=== PATIENT | female | born 1960 | race Caucasian/White ===

== ENCOUNTER 2016-06-07 00:41 | Emergency (ER) | payer BC ==
[2016-06-07] MEDS ORDERED: Sodium Chloride 0.9% 1,000 ML PRIMARY IV ONE (00:57)
[2016-06-07] MEDS ORDERED: NORMAL SALINE 10 ML SYRINGE FLUSH IVP PRN (00:57)
[2016-06-07 01:14] LABS: BASOPHILS # (AUTO) 0.06 10*3/UL; BASOPHILS % (AUTO) 0.8 % (0-1); EOSINOPHILS # (AUTO) 0.17 10*3/UL; EOSINOPHILS % (AUTO) 2.2 % (0-8); HEMATOCRIT 43.9 % (37.0-47.0); HEMOGLOBIN 14.8 g/dL (12.0-16.0); LYMPHOCYTES # (AUTO) 2.74 10*3/uL; MEAN CORPUSCULAR HEMOGLOBIN 29.8 PG (27-31); MEAN CORPUSCULAR HGB CONC 33.7 g/dL (33-37); MEAN CORPUSCULAR VOLUME 88.3 FL (81-99); MONOCYTES # (AUTO) 0.54 10*3/UL (0.3-0.8); MONOCYTES % (AUTO) 6.9 % (5-15); NEUTROPHILS # (AUTO) 4.35 10*3/UL; RED BLOOD COUNT 4.97 10^6/uL (4.20-5.40)
[2016-06-07 01:16] VITALS: RESP 20; TEMP 98.6
[2016-06-07 01:19] LABS: PLATELET MORPHOLOGY COMMENT NORMAL MORPHOLOGY (NORM); RBC MORPHOLOGY COMMENT NORMAL MORPHOLOGY (NORM); WBC MORPHOLOGY COMMENT NORMAL MORPHOLOGY (NORM)
[2016-06-07 01:24] LABS: BLOOD UREA NITROGEN 11 mg/dL (7-22); CALCIUM 9.9 mg/dL (8.7-10.7); EST GLOMERULAR FILTRATION > 60 (>60 ml/min/1.73m(2)); SERUM ALBUMIN 4.1 g/dL (3.5-4.8)
--- NOTE | 2016-06-07 02:36 | DI ---
HISTORY: Right flank pain. COMPARISON: None. TECHNIQUE: Axial images were acquired from the lung bases through the ischial tuberosities without c ontrast. MPR. Absent IV contrast precludes adequate evaluation of viscera and vessels, including ly mph nodes. Hardware results in mild limitation within the right hemipelvis soft tissues. FINDINGS: CHEST: Lungs: Bibasilar atelectasis without focal consolidation or pleural effusion. No pneumothorax. Atherosclerosis: Mild atherosclerotic changes in the aorta. Pericardial effusion: No pericardial effusion. ABDOMEN: Liver: No calcification or adjacent inflammatory change. Gallbladder: Distended with bile, no adjacent inflammatory change. Pancreas: No adjacent inflammatory change. Adrenals: Usual non-contrast appearance. Spleen: Usual non-contrast appearance. Kidneys/Ureters: No hydronephrosis. No renal or ureteral calculi. PELVIS: Bowel: Non-obstructive pattern. Moderate volume formed stool. The evaluated appendix is normal in siz e and without adjacent inflammatory change noted. Mesenteric lymph nodes: No enlarged mesenteric lymph nodes. Peritoneum: No large volume free intraperitoneal fluid or air noted. Bladder: Distended with urine. BONES: No acute osseous abnormality. Multilevel degenerative changes and chronic L5 spondylolysis wi th grade II anterolisthesis. Moderate L2 superior endplate compression fracture with mild retropulsio n. Decreased osseous mineralization. 2 Screws are noted in the right proximal femur. IMPRESSION: 1. No obstructive uropathy. 2. Appendix appears normal, non-obstructive bowel gas pattern. 3. Chronic L5 spondylolysis with grade II anterolisthesis. 4. Moderate L2 superior endplate compression fracture with mild retropulsion. NOTIFICATION: The above findings were phoned to Donovan Guzman in the ER Department on 06/07/2016 at 4:3 9am EST.
[2016-06-07 02:44] LABS: BILIRUBIN,URINE NEGATIVE (NEG); COLOR,URINE YELLOW; GLUCOSE, URINE (UA) NEGATIVE (NEG); NITRATE,URINE NEGATIVE (NEG); OCCULT BLOOD,URINE LARGE (NEG); PROTEIN,URINE 30 mg/dl (NEG); UROBILINOGEN,URINE 0.2 EU/dL (0.2)
[2016-06-07 02:47] LABS: CLARITY,URINE SLIGHTLY CLOUDY (CLEAR)
[2016-06-07 02:48] LABS: BACTERIA,URINE RARE; RBC,URINE 25-30 /hpf; SQUAMOUS EPITHELIAL CELL,UR RARE; URINE SAMPLE TYPE CLEAN CATCH URINE; WBC,URINE 0-1
[2016-06-07] MEDS ORDERED: TAMSULOSIN 0.4 MG CAPSULE PO ONE (03:04)
[2016-06-07] MEDS ORDERED: CIPROFLOXACIN 500 MG TABLET PO ONE (03:04)
[2016-06-07] MEDS ORDERED: HYDROcodone-APAP 10 MG-325 MG TABLET PO SCH (03:15)
--- NOTE | 2016-06-07 03:21 | PDOC ---
Female Problem HPI - General Chief Complaint: Genitourinary Complaint Stated Complaint: right flank pain; hematuria Date Seen by Provider: 06/07/16 Time Seen by Provider: 00:45 Source: POSITIVE: Patient, Spouse Exam Limitations: POSITIVE: No limitations Nurse's Notes Reviewed & Considered: Yes - History of Present Illness Initial Comments: The patient is a 55-year-old female. She states that approximately one hour [employer] she developed some right flank pain and shortly thereafter she noticed some hematuria. No fevers or chills. Patient has a history of osteogenesis imperfecta. No previous abdominal surgery. No similar previous episodes. No nausea or vomiting. Body Location Affected: REPORTS: Back (Right flank) Timing: REPORTS: Abrupt Duration: 1 hour Severity: Moderate Quality: REPORTS: "Pain" Context: DENIES: Frequent Bathing, Poor Hygiene, Frequent [place], Known STD Exposure, Unknown STD Exposure, Possible STD Exposure, Multiple Partners, Known , Recent Vaginal Delivery, Recent Delivery, Recent Miscarriage, Recent Trauma, Recent Surgery, Other Location of Pain: REPORTS: Right, Flank Pain Vaginal Bleeding: DENIES: Abnormal Bleeding, More Severe Than Periods, Heavier Than Periods, Similar to Periods, Lapel Baster Than Periods, Spotting, Passing Clots , Passing Tissue, Other : REPORTS: Post-Menopausal Urinary Symptoms: REPORTS: Blood in Urine, Discomfort w/ Urination Discharge: DENIES: Vaginal Discharge, Vag Fluid Leak- , Breast Discharge, Other Similar Symptoms Previously: No Recent Care Received: REPORTS: Denies Any Prior Injuries Related to Current Complaint?: No - Patient Home Medications Home Medications: Home Medications Diltiazem HCl [Cardizem Cd] 240 mg PO QD #90 cap 03/13/14 Albuterol Sulfate [Proair Hfa] 2 puff INH QID #1 inhaler 08/22/15 Montelukast Sodium [Singulair] 10 mg ORAL QD #90 tab 08/22/15 Simvastatin 10 mg ORAL QD #90 tab 12/10/15 Cyclobenzaprine HCl 10 mg ORAL BID #30 tab 04/01/16 Levonorgestrel-Ethin Estradiol [Lutera-28 Tablet] 1 tab PO DAILY #3 packet 04/22 Ciprofloxacin HCl 500 mg PO Q12H #19 tab 06/07/16 HYDROcodone/APAP 10/325 Tab [Surprise 10/325 Tab] 1 tab PO Q6H PRN #20 tab Meloxicam 7.5 mg PO DAILY 06/07/16 Tamsulosin HCl [Flomax] 0.4 mg PO DAILY #10 cap 06/07/16 - Patient Allergies Allergies/Adverse Reactions: Allergies Allergy/AdvReac Type Severity Reaction Status Date / Time codeine Allergy NOT Verified 06/07/16 00:51 APPLICABLE Past Medical History - heen HEENT History: Denies History Cardiovascular History: Arrhythmia Respiratory History: Asthma Gastrointestinal History: Denies History Genitourinary History: Denies History Endocrine History: Denies History Musculoskeletal History: Other (please comment) Additional Musculoskeletal History: osteogenesis imperfecta Neurological History: Denies History Blood Disorders: Denies History Psychiatric History: Denies History Female Reproductive History: Denies History Cancer History: Denies History In Past Year Been Physically Harmed or Verbally Threatened: No History of MDRO: No Tobacco Use: Never Smoker Alcohol Use: None Substance Use Type: None Previous Surgical History: Yes Type / Date of Surgery: "several ortho repairs/surgeries" Significant Family History: No pertinent family hx Past Medical History Reviewed: Reviewed - No Changes ROS - Limitations ROS Limitations: No Limitations Constitution: REPORTS: Denies Symptoms Cardiovascular: REPORTS: Denies Cardiac Symptoms Respiratory: REPORTS: Denies Resp Symptoms Neurological: REPORTS: Denies Neuro Symptoms Gastrointestinal: REPORTS: Denies GI Symptoms Endocrine: REPORTS: Denies Symptoms Musculoskeletal: REPORTS: Denies MS Symptoms Genitourinary: REPORTS: Dysuria, Flank Pain (Right) Eyes: REPORTS: Denies Symptoms ENT: REPORTS: Denies Symptoms Skin: REPORTS: Denies Skin Symptoms Lympathic: REPORTS: Denies Lympathic Symptoms Immunologic: POSITIVE: Denies Symptoms Psychiatric: POSITIVE: Denies Psych Symptoms Female Genitourinary Exam - General Appearance General Appearance: POSITIVE: Alert, Cooperative, No Acute Distress, No Evidence of Trauma - HEENT HEENT: POSITIVE: Head Inspection Nml, Eyes Inspection Nml, Ears Inspection Nml, Nose Inspection Nml, Oral/Dental Inspect. Nml, Pharynx Inspect. Nml, PERRL, EOMI - Neck Neck: POSITIVE: Normal Inspection, No Apparent Injury - Respiratory Respiratory: POSITIVE: No Respiratory Distress, Breath Sounds Normal, Chest Non- Tender - Cardiovascular Cardiovascular: POSITIVE: Regular Rate and Rhythm, Heart Sounds Normal, Equal Pulses, Strong Pulses Peripheral Pulses: Radial (R): 2+, Radial (L): 2+ - Abdomen Abdomen: POSITIVE: Soft, Normal Bowel Sounds, Non-Tender, No Distention, No Organomegaly - Back Back: POSITIVE: CVA Tenderness (R) (Mild discomfort on percussion) - Skin Skin: POSITIVE: Intact, Normal For Race, Warm, Dry, No Rash - Extremities Extremity: Non-Tender: (All Extremities), Normal ROM: (All Extremities), Normal Inspection: (All Extremities) - Neurological / Psychological Neurological: POSITIVE: Oriented X3, regional cra Normal As Tested, Motor Normal, Sensation Normal, 5, 6 Female Genitourinary Progress - Results Reviewed by me Xrays/CTs/US Reviewed by me: Yes Discussed with Radiologist: Yes Radiology Findings: CT scan abdomen and pelvis shows no obstructive uropathy or definite stones. There is a superior endplate compression fracture of L2. Lab Results Reviewed: Yes (25-30 red blood cells per high-power field on urinalysis) Lab Results:: Laboratory Results 06/07/16 06/07/16 Range/Units 01:13 02:43 WBC 7.88 (4.8-10.8) 10^3/uL RBC 4.97 (4.20-5.40) 10^6/uL Hgb 14.8 (12.0-16.0) g/dL Hct 43.9 (37.0-47.0) % MCV 88.3 (81-99) FL MCH 29.8 (27-31) PG MCHC 33.7 (33-37) g/dL RDW Std Deviation 42.5 (39-50) fL RDW Coeff of Shailesh 13.2 (11.5-14.5) % Plt Count 259 (140-350) 10*3/uL MPV 9.0 (7.4-12.2) FL Immature Gran % (Auto) 0.3 (0-5) % Neut % (Auto) 55.0 (50-80) % Lymph % (Auto) 34.8 (10-50) % Schleicher % (Auto) 6.9 (5-15) % Eos % (Auto) 2.2 (0-8) % Baso % (Auto) 0.8 (0-1) % Immature Gran # (Auto) 0.02 10*3/UL Neut # (Auto) 4.35 10*3/UL Lymph # (Auto) 2.74 10*3/uL Schleicher # (Auto) 0.54 (0.3-0.8) 10*3/UL Eos # (Auto) 0.17 10*3/UL Baso # (Auto) 0.06 10*3/UL WBC Morphology Comment Normal morphology (NORM) Plt Morphology Comment Normal morphology (NORM) RBC Morph Comment Normal morphology (NORM) Sodium 140 (135-145) meq/L Potassium 3.6 L (3.8-5.2) meq/L Chloride 107 (98-112) meq/L Carbon Dioxide 22 L (23-33) meq/L Anion Gap 11 (5-20) BUN 11 (7-22) mg/dL Creatinine 0.5 (0.50-1.20) mg/dL Estimated GFR > 60 (>60 ml/min/1.73m(2)) BUN/Creatinine Ratio 22.00 H (6-20) Glucose 91 (78-110) mg/dL Calculated Osmolality 288.0 (267-292) mOsm/kg Calcium 9.9 (8.7-10.7) mg/dL Total Bilirubin 0.5 (0.3-1.2) mg/dL AST 25 (8-39) IU/L ALT 29 (9-52) IU/L Alkaline Phosphatase 91 (38-126) IU/L Total Protein 7.1 (6.1-8.0) g/dL Albumin 4.1 (3.5-4.8) g/dL Globulin 2.9 (2.50-4.10) g/dL Albumin/Globulin Ratio 1.40 (1.3-2.0) mg/g Ur Collection Type Clean catch urine Urine Color Yellow Urine Clarity Slightly cloudy (CLEAR) Urine pH 5.0 (5.0-8.5) Ur Specific Anna 1.005 (1.005-1.030) Urine Protein 30 (NEG) mg/dl Urine Glucose (UA) Negative (NEG) mg/dL Urine Ketones 15 (NEG) Urine Occult Blood Large H (NEG) Urine Nitrate Negative (NEG) Urine Bilirubin Negative (NEG) Urine Urobilinogen 0.2 (0.2) EU/dL Ur Leukocyte Esterase Trace (NEG) Urine RBC 25-30 (NONE) /hpf Urine WBC 0-1 (NONE) Ur Squamous Epith Cells Rare (NONE) Ur Renal Epithelial Cell None (NONE) Urine Crystals None Urine Bacteria Rare (NONE) Urine Casts None (NONE) Urine Mucus Few (NONE) Urine Trichomonas None (NONE) Urine Yeast None (NONE) Ur Culture Indicated? Culture not set - Patient's Progress Pain Medication Addressed: POSITIVE: Yes (Hydrocodone/APAP) School/Work Release Addressed: POSITIVE: Not Applicable Re-Examine Time: 02:55 Re-Examine Comment: Patient advised to that no definite stones and the urinary tract for seen on CT scan; however, her symptoms are compatible with ureterolithiasis. Is also possible that she could have an infection. Patient started on Cipro, Flomax and hydrocodone/APAP to cover both possibilities. Patient to follow-up with her primary care provider in 10 days. Status: POSITIVE: Unchanged, Re-Examined - Consult Counseled: POSITIVE: Patient, Family, RE: Lab Results, RE: Radiology Results, RE : DX, RE: Need for F/U Patient Care Time - Estimated PCT Patient Care Time (In Minutes): 40 Vital Signs - Recent Vital Signs Vital Signs: Vital Signs (Last 8 hours) Temp Pulse Resp BP Pulse Ox 06/07/16 00:43 98.6 F 100 20 125/72 97 - VS Reviewed Vital Signs Reviewed: Yes Discharge Clinical Impression: Hematuria, Renal colic Discharge Disposition: Discharged to Home Condition: Stable Prescriptions / Orders: Ciprofloxacin HCl 500 mg PO Q12H #19 tab Tamsulosin HCl [Flomax] 0.4 mg PO DAILY #10 cap HYDROcodone/APAP 10/325 Tab [[place] 10/325 Tab] 1 tab PO Q6H PRN #20 tab PRN Reason: Pain Patient Instructions Given at Discharge: Kidney Stones (ED), Urinary Tract Infection in Women (ED) Additional Instructions: The CT scan does not show any definite kidney stones. However, the location of your pain and the blood in your urine are both's highly suggestive of this problem. You could also have a urinary tract infection with some bleeding, or, less likely, tumors of the kidney or bladder. Please take Cipro, one every 12 hours for 10 days. Also, ongoing to give you Flomax, one daily, which might help any stone, which is not detected by the CT scan, to pass. Hydrocodone/APAP , one every 6 hours as necessary for pain. Strain your urine and check for the passage of stones. Follow-up with your primary care provider if you have not passed a stone in 10 days. If he still have blood in your urine and if the urine culture is negative, further urologic evaluation would be indicated at that time. Return anytime if you develop fevers, chills, persistent vomiting or if the pain becomes more severe. Follow Up With: MARCK WOODY FNP [Primary Care Provider] - (Instructions as above. Follow- up with your primary care provider as above. Return here anytime if condition worsens in any way.)
== END 2016-06-07 03:25 | disposition home or self-care (01) ==
LOC: ER 00:41
DX: N23 Unspecified renal colic (principal); R31.9 Hematuria, unspecified; M54.89 Other dorsalgia; M47.896 Other spondylosis, lumbar region; M84.48XD Pathological fracture, other site, subsequent encounter for fracture with routine healing
CPT/HCPCS: 74176; 80053; 81001; 81003; 85025; 96360; 96361; 99283; J7030

== ENCOUNTER → 2016-09-24 | Outpatient (CLI) | payer BC ==
--- NOTE | 2016-09-28 09:20 | DI ---
XR FOOT COMPLETE MIN 3VW,09/24/2016 12:44 PM: Clinical History: Left foot pain Previous Exam: None at this facility. Findings: 3 views of the left foot are obtained, and demonstrate diffuse osteopenia. There is surrounding soft tissue swelling noted. Mild degenerative changes are seen. There is some mild soft tissue swelling. Impression: Diffuse osteopenia without visible fractures.
== END ==
LOC: RAD 12:36
PROVIDERS: ATTEND Physician Assistant Surgical
DX: M79.672 Pain in left foot (principal); M19.072 Primary osteoarthritis, left ankle and foot; M79.89 Other specified soft tissue disorders
CPT/HCPCS: 73630

== ENCOUNTER → 2016-10-14 | Outpatient (CLI) | payer BC ==
[2016-10-14 12:09] LABS: BILIRUBIN,URINE NEGATIVE (NEG); CLARITY,URINE CLEAR (CLEAR); COLOR,URINE YELLOW; GLUCOSE, URINE (UA) NEGATIVE (NEG); NITRATE,URINE NEGATIVE (NEG); OCCULT BLOOD,URINE MODERATE (NEG); PROTEIN,URINE NEGATIVE (NEG); UROBILINOGEN,URINE 0.2 EU/dL (0.2)
[2016-10-14 12:18] LABS: BACTERIA,URINE FEW; RBC,URINE 0-3 /hpf; URINE SAMPLE TYPE CLEAN CATCH URINE
== END ==
LOC: LAB 11:51
PROVIDERS: ATTEND Nurse Practitioner Family
DX: R30.0 Dysuria (principal)
CPT/HCPCS: 81001; 87077; 87088; 87185; 87186

== ENCOUNTER 2017-06-10 19:50 | Inpatient (IN) ==
[2017-06-10] MEDS ORDERED: MORPHINE SULFATE 4 MG/1 ML IM ONE (20:11)
--- NOTE | 2017-06-10 21:14 | DI ---
EXAM: XR Left Shoulder Complete, 2 or More Views CLINICAL HISTORY: ITS.REASON left shoulder pain, osteogenesis imperfecta Physician Notes: include scapular view. Tech Comments: TECHNIQUE: Two or more views of the left shoulder. COMPARISON: None. FINDINGS: Bones/joints: Unremarkable. No acute fracture. No dislocation. Soft tissues: Unremarkable. IMPRESSION: Normal left shoulder x-rays.
[2017-06-10] MEDS ORDERED: NORMAL SALINE 10 ML SYRINGE FLUSH IVP PRN (21:23)
[2017-06-10] MEDS ORDERED: Sodium Chloride 0.9% 1,000 ML PRIMARY IV ONE (21:23)
[2017-06-10 21:35] LABS: BILIRUBIN,URINE NEGATIVE (NEG); CLARITY,URINE CLOUDY (CLEAR); COLOR,URINE YELLOW (Y); GLUCOSE, URINE (UA) NEGATIVE (NEG); OCCULT BLOOD,URINE Trace-lysed (NEG); PH,URINE 6.5 (5.0-8.5); PROTEIN,URINE 30 mg/dl (NEG)
[2017-06-10 21:37] LABS: BACTERIA,URINE MANY; RBC,URINE 0-2 /hpf; URINE SAMPLE TYPE CATH SPECIMEN; WBC,URINE >100
[2017-06-10 22:16] LABS: BASOPHILS # (AUTO) 0.03 10*3/UL; BASOPHILS % (AUTO) 0.3 % (0-1); EOSINOPHILS % (AUTO) 0.9 % (0-8); Hematocrit [HCT] 32.4 % (37.0-47.0); Hemoglobin [HGB] 10.4 g/dL (12.0-16.0); LYMPHOCYTES # (AUTO) 1.77 10*3/uL; MEAN CORPUSCULAR HEMOGLOBIN 29.2 PG (27-31); MEAN CORPUSCULAR HGB CONC 32.1 g/dL (33-37); MEAN PLATELET VOLUME 7.9 FL (7.4-12.2); MONOCYTES # (AUTO) 1.13 10*3/UL (0.3-0.8); MONOCYTES % (AUTO) 9.8 % (5-15); NEUTROPHILS # (AUTO) 7.98 10*3/UL; NEUTROPHILS % (AUTO) 69.2 % (50-80); RED BLOOD COUNT 3.56 10^6/uL (4.20-5.40)
[2017-06-10 22:17] LABS: PLATELET MORPHOLOGY COMMENT NORMAL MORPHOLOGY (NORM); RBC MORPHOLOGY COMMENT NORMAL MORPHOLOGY (NORM); WBC MORPHOLOGY COMMENT NORMAL MORPHOLOGY (NORM)
--- NOTE | 2017-06-10 22:22 | DI ---
EXAM: CT Left Upper Extremity Without Intravenous Contrast, Shoulder CLINICAL HISTORY: ITS.REASON left shoulder pain, osteogenesis imperfecta Physician Notes: Tech Comments: TECHNIQUE: Axial computed tomography images of the left shoulder without intravenous contrast. COMPARISON: Shoulder x-ray performed earlier today. FINDINGS: Bones/joints: There are multiple age indeterminate mildly displaced fractures of the scapular spine. Soft tissues: Unremarkable. IMPRESSION: There are multiple age indeterminate mildly displaced fractures of the scapular spine.
[2017-06-10 22:27] LABS: BLOOD UREA NITROGEN 7 mg/dL (7-22); SERUM ALBUMIN 3.8 g/dL (3.5-4.8)
[2017-06-10] MEDS ORDERED: DOCUSATE 100 MG CAPSULE PO PRN (22:46)
[2017-06-10] MEDS ORDERED: HYDROcodone-APAP 5 MG -325 MG TABLET PO PRN (22:46)
[2017-06-10] MEDS ORDERED: CALCIUM CARBONATE 500 MG (TUMS) CHEWABLE TABLET PO PRN (22:46)
[2017-06-10] MEDS ORDERED: ONDANSETRON 4 MG/2 ML VIAL IVP PRN (22:46)
[2017-06-10] MEDS ORDERED: LIDOCAINE W/ SODIUM BICARB 0.5 ML SYR SUBD PRN (22:46)
[2017-06-10] MEDS ORDERED: oxyCODONE IR Tab 5 MG TAB PO PRN (22:50)
[2017-06-10] MEDS ORDERED: SODIUM CHLORIDE 0.9% IV ONE (22:52)
[2017-06-10] MEDS ORDERED: CEFOTAXIME IV ONE (22:52)
--- NOTE | 2017-06-10 22:54 | PDOC ---
HPI - History of Present Illness History of Present Illness: This very nice 56-year-old female was brought to the ER complaining of shoulder pain she has a past medical history of osteogenesis imperfecta had a femur fracture last week and was sent to [facility] in [place] for repair she underwent surgery on Wednesday of last week and was sent home on Wednesday she states that her left shoulder was hurting in the hospital but she didn't think much of it and today while trying to put on a sweater felt a pop in her left shoulder increase in pain resulting in a fracture she is also not weightbearing on the left leg because of her surgery. Also has a urinary tract infection patient was admitted and started on antibiotics and orthopedic consult was initiated for further recommendations as well as PT and OT Past Medical History Medical History: osteogenesis imperfecta,HTN.hypercholestorelemia Surgical History: Spiral femur fracture repair Tobacco Use: Never Smoker In the Past 12 Months, Have Used or Abuse Any of the Following Substance: None Medication / Allergies Home Medications: Home Medications 3 Medication Instructions Recorded Confirmed Type Albuterol Sulfate [Proair Hfa] 2 puff INH QID #1 inhaler 08/22/15 06/10/17 History Cyclobenzaprine HCl 10 mg ORAL BID #30 tab 04/01/16 06/10/17 Rx Levonorgestrel-Ethin Estradiol 1 tab PO DAILY #3 packet 04/22/16 06/10/17 Rx [Lutera-28 Tablet] Montelukast Sodium [Singulair] 10 mg ORAL QD #90 tab 06/30/16 06/10/17 Rx diltiazem CD 240 mg 180 mg PO QD #90 cap 12/30/16 06/10/17 History capsule,extended release 24 hr potassium chloride ER 10 mEq 10 meq PO QDAY #90 cap 01/07/17 06/10/17 Rx capsule,extended release simvastatin 10 mg tablet 10 mg PO QD #90 tab 03/03/17 06/10/17 Rx lisinopril 10 mg tablet 10 mg PO QDAY 04/01/17 06/10/17 History Oxycodone HCl 5 mg PO PRN PRN 06/10/17 06/10/17 History Allergies/Adverse Reactions: Allergies 3 Allergy/AdvReac Type Severity Reaction Status Date / Time codeine Allergy NOT Verified 06/10/17 20:08 APPLICABLE Review of Systems - Review of Systems All Systems: Reviewed & No Additional Complaints Except as Stated - Respiratory Respiratory: DENIES: Negative System Review, Cough, Sputum, Dyspnea At Rest, Dyspnea with Exertion, Pleuritic Pain, Hemoptysis, Wheezing, Other, See HPI - Cardiovascular Cardiovascular: DENIES: Negative System Review, Chest Pain, Edema, Syncope, Palpitations, Orthopnea, Paroxysmal Nocturnal Dyspnea, Other, See HPI - Gastrointestinal Gastrointestinal / Abdominal: DENIES: Negative System Review, Nausea, Vomiting, Diarrhea, Constipation, Abdominal Pain, Bloody Stool, Poor Appetite, Heartburn, Regurgitation, Bloating, Lactose Intolerance, Melena, Bright Red Blood per Rectum, Other, See HPI Exam - Vitals Vital Signs: Vital Signs Temperature 98.5 F Temperature Source Temporal Artery Scan Pulse Rate [Pulse Oximeter] 116 Respiratory Rate 16 Blood Pressure [Right Arm] 118/70 Pulse Ox 96 Oxygen Delivery Method Room Air Height 4 ft 7 in Weight 100 lb - General General Appearance: No Acute Distress, Cooperative - Head Head Exam: Normal Inspection, Normocephalic, Atraumatic - Respiratory Respiratory Exam: POSITIVE: Clear to Auscultation - Bilaterally, Breathing Non Labored, Normal To Percussion, Normal to Percussion and Palpation - Extremities Extremities Exam: POSITIVE: Normal Inspection, Full ROM, Normal Capillary Refill , No Clubbing Present, No Edema Present, No Cyanosis Present, Negative Elizabeth's sign, Dosalis Pedis Pulses - Stong & Regular Additional Extremities Exam Details: Left arm in a sling - Neurological Neurological Exam: POSITIVE: Alert, Oriented x 3, Reflexes Normal, Normal Gait, CN II-XII Intact, No Facial Droop, Speech Intact / Clear, Moves All Extremities Equally, No Fasciculations, No Clonus - Psychiatric Psychiatric Exam: POSITIVE: Normal Affect, Normal Mood Results - Labs CBC and BMP: 06/11/17 04:23 18 04:23 Assessment and Plan - Patient Problems (1) Anemia Current Visit: Yes Status: Acute Code(s): D64.9 - Anemia, unspecified (2) Osteogenesis imperfecta Current Visit: Yes Status: Acute Code(s): Q78.0 - Osteogenesis imperfecta (3) Scapular fracture Current Visit: Yes Status: Acute Code(s): S42.109A - Fracture of unspecified part of scapula, unspecified shoulder, initial encounter for closed fracture (4) UTI (urinary tract infection) Current Visit: Yes Status: Acute Code(s): N39.0 - Urinary tract infection, site not specified (5) Fracture of femur Current Visit: No Status: Acute Code(s): S72.90XA - Unspecified fracture of unspecified femur, initial encounter for closed fracture - Assessment / Plan Additional Assessment/Plan Details: #[address] Nolasco was consulted in the ER he recommended sling will await further recommendations PTOT consult did also has a left femur fracture and is not weightbearing which she had operated in [place] most likely all this and result of osteogenesis imperfecta #2 UTI continue [place] IV #3 anemia etiology unknown we'll check some iron panels
[2017-06-10] MEDS ORDERED: MORPHINE SULFATE 2 MG/1 ML IVP ONE (23:05)
[2017-06-10] MEDS ORDERED: ONDANSETRON 4 MG/2 ML VIAL IVP ONE (23:05)
--- NOTE | 2017-06-10 23:26 | PDOC ---
General Adult HPI - General Chief Complaint: Upper Extremity Problem/Injury Stated Complaint: LEFT SHOULDER PAIN/INJURY Date Seen by Provider: 06/10/17 Time Seen by Provider: 19:55 Source: POSITIVE: Patient, EMS Exam Limitations: POSITIVE: No limitations Nurse's Notes Reviewed & Considered: Yes EMS Report Reviewed & Considered: Verbal - History of Present Illness Initial Comment: The patient is a 56-year-old female who is brought to the emergency department with complaints of left shoulder pain. She has a history of osteogenesis imperfecta and had fallen from a stool while playing with a grandchild last week. She was diagnosed with a femur fracture on the left side and had been sent to [facility] in [place] for repair. She states that she underwent surgery on Wednesday of last week and was discharged from the hospital on Wednesday. She states that even while in the hospital she was having some pain in her posterior left shoulder especially with transfers etc. She states that earlier this evening she was attempting to put on a sweater when she felt a pop in her left shoulder. She now has significant increase in pain to the posterior aspect of her shoulder. She is unable to lift her arm without significant pain. She is currently nonweightbearing on her left leg because of recent surgery and has limited weightbearing on the right leg from previous issues. She has been having somewhat of a difficult time getting by at home even prior to this evening. EMS was called to transport the patient here for evaluation. She is not taking any blood thinner medications. Have you received a tetanus shot in the past 10 years?: Yes - Patient Home Medications Home Medications: Home Medications Albuterol Sulfate [Proair Hfa] 2 puff INH QID #1 inhaler 08/22/15 Cyclobenzaprine HCl 10 mg ORAL BID #30 tab 04/01/16 Levonorgestrel-Ethin Estradiol [Lutera-28 Tablet] 1 tab PO DAILY #3 packet 04/22 Montelukast Sodium [Singulair] 10 mg ORAL QD #90 tab 06/30/16 diltiazem CD 240 mg capsule,extended release 24 hr 180 mg PO QD #90 cap potassium chloride ER 10 mEq capsule,extended release 10 meq PO QDAY #90 cap 04/24 meloxicam 7.5 mg tablet 7.5 mg PO BID #60 tab 02/08/17 simvastatin 10 mg tablet 10 mg PO QD #90 tab 03/03/17 lisinopril 10 mg tablet 10 mg PO QDAY 04/01/17 Oxycodone HCl 5 mg PO PRN PRN 06/10/17 - Patient Allergies Allergies/Adverse Reactions: Allergies 3 Allergy/AdvReac Type Severity Reaction Status Date / Time codeine Allergy NOT Verified 06/10/17 20:08 APPLICABLE Past Medical History - heen HEENT History: Denies History Cardiovascular History: Arrhythmia, Valvular Heart Disease Additional Cardiovasular History: SVT Respiratory History: Asthma Gastrointestinal History: Denies History Genitourinary History: Denies History Endocrine History: Denies History Musculoskeletal History: Other (please comment) Prosthesis or Implant: No Additional Musculoskeletal History: osteogenesis imperfecta Neurological History: Denies History Blood Disorders: Denies History Psychiatric History: Denies History History of Sexually Transmitted Diseases: No Female Reproductive History: Denies History Cancer History: Denies History In Past Year Been Physically Harmed or Verbally Threatened: No History of MDRO: No Tobacco Use: Never Smoker Alcohol Use: None In the Past 12 Months, Have Used or Abuse Any Substance: None Previous Surgical History: Yes Type / Date of Surgery: "several ortho repairs/surgeries". recent surgery to repair spiral femur fracture Significant Family History: No pertinent family hx Past Medical History Reviewed: Reviewed - No Changes ROS - Limitations ROS Limitations: No Limitations Constitution: DENIES: Chills, Fever Cardiovascular: REPORTS: Denies Cardiac Symptoms Respiratory: REPORTS: Denies Resp Symptoms Neurological: REPORTS: Denies Neuro Symptoms Gastrointestinal: REPORTS: Denies GI Symptoms General Adult Exam - General Appearance General Appearance: POSITIVE: Alert, Cooperative, No Acute Distress - HEENT HEENT: POSITIVE: Head Inspection Nml, Eyes Inspection Nml, Ears Inspection Nml, Dry Mucous Membranes - Neck Neck: POSITIVE: Normal Inspection - Respiratory Respiratory: POSITIVE: No Respiratory Distress, Breath Sounds Normal - Cardiovascular Cardiovascular: POSITIVE: Regular Rate & Rhythm, No Murmur - Abdomen Abdomen: Soft: (All Quadrants), Denies Tenderness: (All Quadrants) - Skin Skin: POSITIVE: Normal Color, No Rash - Extremities Additional Extremities Details: Her left lower extremity remains in a bandage/splint. Examination of the left shoulder reveals tenderness to the posterior aspect of the shoulder primarily over the scapula, limited range of motion of the shoulder secondary to pain, no obvious deformity, no tenderness down lower in the humerus or elbow. - Neurological / Psychological Neurological: POSITIVE: Oriented X3, Other (No focal neurologic deficits) General Adult Progress - Results Reviewed by me Xrays/CTs/US Reviewed by me: Yes Discussed with Radiologist: Yes Radiology Findings: Initial x-ray of the left shoulder including scapular view did not show any evidence of fracture per radiologist. Subsequent CT scan of the left shoulder does reveal fractures of the scapular spine of unknown acuity per radiologist. Lab Results Reviewed by Me: Yes CBC and BMP: 06/11/17 04:23 06/11/17 04:23 - Patient's Progress MDM / ED Course: Initially the patient was given 2 mg of morphine for pain control. X-rays of the left shoulder were obtained which did not show any evidence of obvious fracture. The patient continued to have significant pain and was unable to move her left arm without significant pain. She has already nonweightbearing on her left leg and has issues bearing weight on her right leg. She states that in her current state she does not feel that she can take care of herself at home. An IV was established and blood work was obtained. A catheter UA was also obtained which does show evidence of infection. She did receive a second dose of IV morphine for pain control. I did discuss the patient with Dr. Nolasco who is on-call for orthopedic surgery. He recommended treatment of the scapular fracture with an arm sling. I also subsequently discussed the patient with Dr. Aquino from the hospitalist service will admit the patient for treatment of UTI and make arrangements for therapy and/or rehabilitation treatment plan regarding the recent femur fracture and scapular fracture. - Consult Counseled: POSITIVE: Patient, Family, RE: Lab Results, RE: Radiology Results, RE : DX Patient Care Time - Estimated PCT Patient Care Time (In Minutes): 45 Vital Signs - VS Reviewed Vital Signs Reviewed: Yes Discharge Clinical Impression: Scapular fracture, Osteogenesis imperfecta, UTI (urinary tract infection), Femur fracture, left Discharge Disposition: Admit to Observation Condition: Fair
[2017-06-10] MEDS ORDERED: LIDOCAINE HCL 2 % 10 ML JELLY URO-JECT TOPICAL PRN (23:30)
[2017-06-11] MEDS: ACETAMINOPHEN 325 MG TABLET PO PRN ×2 (00:46→14:04)
[2017-06-11] MEDS ORDERED: Sodium Chloride 0.9% 100 ML IV ONE ×2 (01:12→01:16)
[2017-06-11] MEDS: HEPARIN 5000 UNIT/1 ML SUBCUT SCH ×4 (01:19→23:54)
[2017-06-11] MEDS: Simvastatin Tab 10 MG TAB PO SCH ×2 (01:41→20:37)
[2017-06-11] MEDS: DILTIAZEM CD 180 MG CAP PO SCH ×3 (01:41→20:38)
[2017-06-11] MEDS ORDERED: CYCLOBENZAPRINE 10 MG TABLET PO ONE (02:38)
[2017-06-11 05:17] LABS: BASOPHILS # (AUTO) 0.03 10*3/UL; BASOPHILS % (AUTO) 0.3 % (0-1); EOSINOPHILS # (AUTO) 0.08 10*3/UL; EOSINOPHILS % (AUTO) 0.9 % (0-8); LYMPHOCYTES # (AUTO) 2.15 10*3/uL; MEAN CORPUSCULAR HEMOGLOBIN 28.4 PG (27-31); MEAN CORPUSCULAR HGB CONC 30.8 g/dL (33-37); MEAN CORPUSCULAR VOLUME 92.2 FL (81-99); MEAN PLATELET VOLUME 8.2 FL (7.4-12.2); MONOCYTES % (AUTO) 11.1 % (5-15); RED BLOOD COUNT 2.82 10^6/uL (4.20-5.40)
[2017-06-11 05:20] LABS: PLATELET MORPHOLOGY COMMENT NORMAL MORPHOLOGY (NORM); RBC MORPHOLOGY COMMENT NORMAL MORPHOLOGY (NORM); WBC MORPHOLOGY COMMENT NORMAL MORPHOLOGY (NORM)
[2017-06-11 05:24] LABS: BLOOD UREA NITROGEN 6 mg/dL (7-22); SERUM ALBUMIN 2.7 g/dL (3.5-4.8)
[2017-06-11] MEDS ORDERED: ALBUTEROL SULFATE 8.5 GM HFA INHALER INH SCH (07:00)
[2017-06-11] MEDS ORDERED: ALBUTEROL SULFATE 8.5 GM HFA INHALER INH PRN (07:16)
[2017-06-11] MEDS: LISINOPRIL 10 MG TABLET PO SCH (08:02)
[2017-06-11] MEDS: Montelukast Tab 10 MG TAB PO SCH (08:02)
[2017-06-11] MEDS: CYCLOBENZAPRINE 10 MG TABLET PO SCH ×2 (08:02→20:38)
[2017-06-11] MEDS: Potassium Chloride Tab 10 MEQ TAB PO SCH (08:03)
[2017-06-11] MEDS: NORMAL SALINE 10 ML SYRINGE FLUSH IVP PRN (08:04)
[2017-06-11] MEDS ORDERED: DILTIAZEM CD 180 MG CAP PO SCH (09:00)
[2017-06-11] MEDS ORDERED: Meloxicam Tab 7.5 MG TABLET PO SCH (09:00)
[2017-06-11] MEDS: oxyCODONE IR Tab 5 MG TAB PO PRN ×3 (09:22→21:16)
[2017-06-11] MEDS: LEVONORGESTREL ETHIN ESTRADIOL PO SCH (10:56)
--- NOTE | 2017-06-11 14:38 | PTI REPORT ---
Thank you for the referral of Pita Starr. She was seen on 06/11/17 for an inpatient evaluation secondary to a left femur fracture with ORIF. SUBJECTIVE: The patient is a 56-year-old female who has a history of osteogenesis imperfecta. Most recently she suffered a fall on 06/01/2017 when she fell from a stool. She was transferred to [facility] for open reduction internal fixation of a distal femur fracture on 06/02/2017. She was discharged home from [facility] on 06/06/2017. She did come to the hospital yesterday after feeling a pop in her left shoulder and severe pain. She does have a fracture of the spinous scapula on the left. She is non weight-bearing on the left with a knee immobilizer in place and is also non weight-bearing in the left upper extremity. Previous functional level: The patient lived at home with her . Most recently she was able to ambulate with a standing cane with a long leg brace on the right lower extremity due to previous fractures and ORIF of the tibia and the ankle. She does have a wheelchair at home with elevating swing-away leg rests. PAST MEDICAL HISTORY: Past medical history can be found in the patient's medical record. OBJECTIVE FINDINGS: General observations: The patient is awake and oriented x3. Pain: The patient reports pain in the left femur at a level of 4/10 on the verbal analog scale (0=no pain, 10=worst pain). She has minimal discomfort in the left scapula if not moving. Transfers: The patient required max assist x2 to perform a pivot transfer using pad and sheet to perform the rotations with no sharing her ischial tuberosities. She was able to sit on the bedside with left lower extremity supported in a long leg brace x5 minutes. ASSESSMENT: Problem List: Decreased ability to perform functional transfers Weakness Pain Short-Term Goals: To be met by discharge from inpatient: Patient will be able to perform pivot transfer with mod assist of two with a long legged brace on the right lower extremity, non weight-bearing on the left lower extremity as well as the left upper extremity. Patient will be able to tolerate sitting position x30 minutes, supported in the chair. Long-Term Goals: To be met following discharge from inpatient: Patient will return home to care of the family. TREATMENT PLAN: Patient will be seen B.I.D during the week and one time per day over the weekend as an inpatient for sitting balance activity and transfer training. Plan of care was reviewed with the patient and agreed upon. INITIAL TREATMENT: Treatment today consisted of the initial evaluation. A sling was applied to the left upper extremity per physician's orders. Knee immobilizer was readjusted for proper fit. The patient and her were instructed in the proper fit of the brace. Note done by: Felicia Kennedy, PT DEBRA
--- NOTE | 2017-06-11 16:24 | CONSULT ---
Consult Note - Consult Consult Date: 06/11/17 Reason for Consult: Orthopedic Consult Requesting Physician: Alhaji Aquino Primary Care Provider: DAVID Castillo - History of Present Illness History of Present Illness: Patient is a 56-year-old female with osteogenesis imperfecta who sustained a fall approximately 10 days ago where she sustained a significant a fracture through her left distal femur she also around that time up to go which is in the hospital transfer and moving was complaining of some left posterior shoulder pain and discomfort but this was never investigated when she was in [place] at the hospital down there. She notes she was at home putting on a sweater and had increasing pain discomfort with a pop up. She came to the emergency room where x-rays were negative a CT scan was ordered and it was found that she had a scapula fracture. Minimally displaced indeterminant age. Patient was admitted because of pain control and limited ability to mobilize in the house. Patient then home for the last 4 days out from her discharge from [place]. Past Medical History Medical History: osteogenesis imperfecta,HTN.hypercholestorelemia Surgical History: Spiral femur fracture repair Tobacco Use: Never Smoker In the Past 12 Months, Have Used or Abuse Any of the Following Substance: None Medication / Allergies Home Medications: Home Medications 3 Medication Instructions Recorded Confirmed Type Albuterol Sulfate [Proair Hfa] 2 puff INH QID #1 inhaler 08/22/15 06/10/17 History Cyclobenzaprine HCl 10 mg ORAL BID #30 tab 04/01/16 06/10/17 Rx Levonorgestrel-Ethin Estradiol 1 tab PO DAILY #3 packet 04/22/16 06/10/17 Rx [Lutera-28 Tablet] Montelukast Sodium [Singulair] 10 mg ORAL QD #90 tab 06/30/16 06/10/17 Rx diltiazem CD 240 mg 180 mg PO QD #90 cap 12/30/16 06/10/17 History capsule,extended release 24 hr potassium chloride ER 10 mEq 10 meq PO QDAY #90 cap 01/07/17 06/10/17 Rx capsule,extended release simvastatin 10 mg tablet 10 mg PO QD #90 tab 03/03/17 06/10/17 Rx lisinopril 10 mg tablet 10 mg PO QDAY 04/01/17 06/10/17 History Oxycodone HCl 5 mg PO PRN PRN 06/10/17 06/10/17 History Allergies/Adverse Reactions: Allergies 3 Allergy/AdvReac Type Severity Reaction Status Date / Time codeine Allergy NOT Verified 06/10/17 20:08 APPLICABLE Exam - - Exam: Examination shows that the patient is a sling she has limited motion of the arm secondary to pain complains of pain in the posterior scapular region. Good elbow wrist and digital motion shoulder motion produces posterior scapular pain unwilling to really move. There is no significant swelling edema and ecchymosis or other changes. Patient's left leg is in a knee immobilizer good active motion of the foot and ankle. Dressing not taken down at this point in time. Radiographs of the left shoulder show a nondisplaced or minimally displaced scapular body fracture CT scan show no evidence of proximal humerus fracture but a minimally displaced scaphoid body fracture. - Vitals Vital Signs: Vital Signs Temperature 98.7 F Temperature Source Temporal Artery Scan Pulse Rate [Pulse Oximeter] 110 Respiratory Rate 18 Blood Pressure [Right Arm] 110/34 Pulse Ox 93 Oxygen Delivery Method Room Air Height 4 ft 7 in Weight 45.359 kg Results - Labs CBC and BMP: 06/11/17 04:23 06/11/17 04:23 Assessment and Plan - Assessment / Plan Additional Assessment/Plan Details: Impression: Recent left femur fracture with apparent plating with nonweightbearing status. Left scapular body fracture minimally displaced Plan: Patient to mobilize with physical therapy she can utilize the left arm as tolerated for activities and transfers. As a discussed with the patient I think based on the nature and location of this is likely present when she had her initial fall but with the recent pop this probably displaced slightly though it still remains minimally displaced I certainly think by location she can utilize as she feels comfortable obviously limited use a sling as needed and will have her slowly progress as she tolerates. - Time/Visit Time Spent With Patient: 15-25 Minutes
[2017-06-11] MEDS ORDERED: Sodium Chloride 0.9% 1,000 ML PRIMARY IV ONE (16:43)
--- NOTE | 2017-06-11 17:37 | PT.PROG ---
Progress Note Progress Note: S. Patient stated that her back is hurting and would like to move. O. Patient was transferred to the edge of bed where she performed long arc quads , ankle pumps, marches, resisted knee flexion all x 10 on the right leg. Patient was transferred back to bed where she was left with alarm and call light. A. Patient tolerated exercise fair, she was able to tolerate 10 minutes of sitting up. She required max assist x2 to move her to the edge of bed. She would continue to benefit from skilled therapy at this time to increase strength on her right side. Patient could benefit from Swing bed at this time. P. Continue POC.
[2017-06-12] MEDS: ACETAMINOPHEN 325 MG TABLET PO PRN ×3 (00:01→19:46)
[2017-06-12] MEDS: oxyCODONE IR Tab 5 MG TAB PO PRN ×2 (04:45→12:29)
[2017-06-12] MEDS: HEPARIN 5000 UNIT/1 ML SUBCUT SCH ×3 (06:47→23:43)
[2017-06-12] MEDS: LISINOPRIL 10 MG TABLET PO SCH ×2 (08:27→09:13)
[2017-06-12] MEDS: CYCLOBENZAPRINE 10 MG TABLET PO SCH ×2 (08:27→20:36)
[2017-06-12] MEDS: Potassium Chloride Tab 10 MEQ TAB PO SCH (08:27)
[2017-06-12] MEDS: Montelukast Tab 10 MG TAB PO SCH (08:28)
[2017-06-12 08:47] LABS: BASOPHILS # (AUTO) 0.03 10*3/UL; BASOPHILS % (AUTO) 0.3 % (0-1); EOSINOPHILS # (AUTO) 0.17 10*3/UL; EOSINOPHILS % (AUTO) 1.7 % (0-8); Hematocrit [HCT] 26.9 % (37.0-47.0); Hemoglobin [HGB] 8.5 g/dL (12.0-16.0); LYMPHOCYTES # (AUTO) 1.94 10*3/uL; MEAN CORPUSCULAR HEMOGLOBIN 29.4 PG (27-31); MEAN CORPUSCULAR HGB CONC 31.6 g/dL (33-37); MEAN CORPUSCULAR VOLUME 93.1 FL (81-99); MEAN PLATELET VOLUME 8.5 FL (7.4-12.2); MONOCYTES # (AUTO) 0.86 10*3/UL (0.3-0.8); MONOCYTES % (AUTO) 8.6 % (5-15); NEUTROPHILS # (AUTO) 6.57 10*3/UL; RED BLOOD COUNT 2.89 10^6/uL (4.20-5.40)
[2017-06-12 08:57] LABS: BLOOD UREA NITROGEN 3 mg/dL (7-22); SERUM ALBUMIN 3.1 g/dL (3.5-4.8)
[2017-06-12 09:23] LABS: PLATELET MORPHOLOGY COMMENT NORMAL MORPHOLOGY (NORM); RBC MORPHOLOGY COMMENT NORMAL MORPHOLOGY (NORM); WBC MORPHOLOGY COMMENT NORMAL MORPHOLOGY (NORM)
--- NOTE | 2017-06-12 11:10 | PT.PROG ---
Progress Note Progress Note: S. Patient stated that her back is feeling better this morning, she reports she would like to sit up for a while. O. Patient was transferred to the edge of bed where she performed long arc quads , ankle pumps, marches, resisted knee flexion all x 10 on the right leg. Upper extremity exercises on the right in all planes with red therap band all x 10. Patient was transferred back to bed where she was left with alarm and call light. A. Patient tolerated exercise fair, she was able to tolerate 10 minutes of sitting up. She required max assist x2 to move her to the edge of bed. She would continue to benefit from skilled therapy at this time to increase strength on her right side. Patient could benefit from Swing bed at this time. P. Continue POC.
--- NOTE | 2017-06-12 11:23 | ORTHO.PROG ---
Last Taken Vital Signs: Vital Signs - Last Taken Temperature 99.9 F H 06/12/17 09:00 Pulse Rate 98 06/12/17 09:00 Respiratory Rate 16 06/12/17 09:00 Blood Pressure 108/52 06/12/17 09:00 Pulse Ox 92 06/12/17 04:50 Subjective: Patient notes that she was able to do everything therapy asked her to do today she set up at the end of the bed mobilized a little. She notes prior to her recent fall where she sustained her femur fracture she was just getting ready to switch from a walker to a cane. Patient has significant osteogenesis and Perfecta. After her recent fracture treated at [facility] in [place] for the left femur they recommended just gentle active motion as tolerated no passive motion and strict nonweightbearing 6-8 weeks Objective: Examination shows good motion of the foot and ankle. Her sensory exam is intact. Examination of the upper extremity shows that she has limited motion secondary to scapular pain with pain over the scapula. Laboratory Results 06/12/17 06/12/17 Range/Units 08:35 08:35 WBC 9.96 (4.8-10.8) 10^3/uL RBC 2.89 L (4.20-5.40) 10^6/uL Hgb 8.5 L (12.0-16.0) g/dL Hct 26.9 L (37.0-47.0) % MCV 93.1 (81-99) FL MCH 29.4 (27-31) PG MCHC 31.6 L (33-37) g/dL RDW Std Deviation 46.4 (39-50) fL RDW Coeff of Shailesh 14.4 (11.5-14.5) % Plt Count 391 H (140-350) 10*3/uL MPV 8.5 (7.4-12.2) FL Immature Gran % (Auto) 3.9 (0-5) % Neut % (Auto) 66.0 (50-80) % Lymph % (Auto) 19.5 (10-50) % [place] % (Auto) 8.6 (5-15) % Eos % (Auto) 1.7 (0-8) % Baso % (Auto) 0.3 (0-1) % Immature Gran # (Auto) 0.39 10*3/UL Neut # (Auto) 6.57 10*3/UL Lymph # (Auto) 1.94 10*3/uL [place] # (Auto) 0.86 H (0.3-0.8) 10*3/UL Eos # (Auto) 0.17 10*3/UL Baso # (Auto) 0.03 10*3/UL WBC Morphology Comment Normal morphology (NORM) Plt Morphology Comment Normal morphology (NORM) RBC Morph Comment Normal morphology (NORM) Sodium 140 (135-145) meq/L Potassium 4.0 (3.8-5.2) meq/L Chloride 107 (98-112) meq/L Carbon Dioxide 22 L (23-33) meq/L Anion Gap 11 (5-20) BUN 3 L (7-22) mg/dL Creatinine 0.5 (0.50-1.20) mg/dL Estimated GFR > 60 (>60 ml/min/1.73m(2)) BUN/Creatinine Ratio 6.00 (6-20) Glucose 101 (78-110) mg/dL Calculated Osmolality 286.0 (267-292) mOsm/kg Calcium 9.3 (8.7-10.7) mg/dL Total Bilirubin 0.4 (0.3-1.2) mg/dL AST 30 (8-39) IU/L ALT 51 (9-52) IU/L Alkaline Phosphatase 81 (38-126) IU/L Total Protein 5.7 L (6.1-8.0) g/dL Albumin 3.1 L (3.5-4.8) g/dL Globulin 2.6 (2.50-4.10) g/dL Albumin/Globulin Ratio 1.10 L (1.3-2.0) mg/g Assessment: Left supracondylar femur fracture open reduction internal fixation stabilization with history of osteogenesis imperfecta Left scapular body fracture minimally displaced Plan: Knee immobilizer left knee she can do active range of motion as tolerated. I did instruct the patient and also therapy she has bands to work stretching and active motion of the foot and ankle on both legs. Particularly paid attention to the left foot and ankle. I encouraged gentle active range of motion of the knee if she can tolerate this. No passive motion. As far as the left arm sling use for comfort and progress with utilization as tolerated. Discussed with therapy patient and moving forward with a goal of getting the patient hopefully to a platform type crutch on the involved left side so that she can be nonweightbearing until cleared by her surgeon.
--- NOTE | 2017-06-12 15:05 | PDOC(PROG) ---
Date and Time of Service: 06/12/2017, 1502 Interval History: No chest pain, shortness breath, nausea or vomiting. States her pain is well controlled. She is interested in doing a swing bed for therapy until she is sure she is comfortable with her transfers and they can work on a platform walker. Objective : Data - Labs CBC and BMP: 06/12/17 08:35 06/12/17 08:35 Objective : Exam - General General Appearance: No Acute Distress, Cooperative Additional General Exam Details: Vital Signs (24 hrs) Temp Pulse Resp BP Pulse Ox 06/12/17 12:34 99 F 103 H 20 130/74 93 06/12/17 09:00 99.9 F H 98 16 108/52 06/12/17 07:00 98 06/12/17 04:50 97.5 F 96 16 122/66 92 06/12/17 00:38 98.6 F 91 16 114/62 91 06/11/17 20:08 98.7 F 105 H 20 118/60 94 06/11/17 17:56 102 H 16 98/49 93 06/11/17 17:00 98.2 F 100 18 96/39 94 - Eye Eye Exam: No Scleral Icterus - ENT ENT Exam: Mucous Membranes Moist - Respiratory Respiratory Exam: Clear to Auscultation - Bilaterally, Breathing Non Labored - Cardiovascular Cardiovascular Exam: RRR, No Murmur, No Clicks, No Gallops, No Rubs, No JVD - GI/Abdominal GI/Abdominal Exam: Normal Bowel Sounds, Non Tender, Non Distended, Soft - Extremities Extremities Exam: No Clubbing Present, No Edema Present, No Cyanosis Present Additional Extremities Exam Details: Has brace and dressing in place - Neurological Neurological Exam: Alert, Oriented x 3, No Facial Droop, Speech Intact / Clear Assessment and Plan - Patient Problems (1) Fracture of femur Current Visit: No Status: Acute Comment: Left femur fracture. Code(s): S72.90XA - Unspecified fracture of unspecified femur, initial encounter for closed fracture (2) Scapular fracture Current Visit: Yes Status: Acute Code(s): S42.109A - Fracture of unspecified part of scapula, unspecified shoulder, initial encounter for closed fracture Qualifiers: Encounter type: initial encounter Fracture type: closed Laterality: left (3) UTI (urinary tract infection) Current Visit: Yes Status: Acute Code(s): N39.0 - Urinary tract infection, site not specified Qualifiers: Urinary tract infection type: acute cystitis Hematuria presence: without hematuria Qualified Code(s): N30.00 - Acute cystitis without hematuria (4) Osteogenesis imperfecta Current Visit: Yes Status: Acute Code(s): Q78.0 - Osteogenesis imperfecta (5) Anemia Current Visit: Yes Status: Acute Code(s): D64.9 - Anemia, unspecified Qualifiers: Anemia type: unspecified type Qualified Code(s): D64.9 - Anemia, unspecified - Assessment / Plan Additional Assessment/Plan Details: I will check a vitamin D level in the morning. It may be worthwhile to have this patient eventually see the cnc applications engineer to discuss osteoporosis prevention as it is not well defined and osteogenesis imperfecta patients. Getting her to an osteogenesis imperfecta clinic may be the best thing after she recovers from this distal femur fracture repair. PT and OT. Swing bed is likely for this patient given the need to continue to work well with transfers and make sure the patient can tolerate those. No evidence for restrictive lung disease or other complications at this time.
[2017-06-12] MEDS: CEPHALEXIN 250 MG CAPSULE PO SCH ×2 (15:52→20:44)
[2017-06-12] MEDS: LEVONORGESTREL ETHIN ESTRADIOL PO SCH ×2 (17:32→20:45)
[2017-06-12] MEDS: DILTIAZEM CD 180 MG CAP PO SCH (20:36)
[2017-06-12] MEDS: Simvastatin Tab 10 MG TAB PO SCH (20:36)
[2017-06-12] MEDS: cefTRIAXone Inj 2 GM in Sodium Chloride 0.9% 100 ML IV SCH (21:49)
[2017-06-13] MEDS: oxyCODONE IR Tab 5 MG TAB PO PRN ×3 (01:02→13:06)
[2017-06-13] MEDS: ACETAMINOPHEN 325 MG TABLET PO PRN ×2 (04:50→15:31)
[2017-06-13] MEDS: HEPARIN 5000 UNIT/1 ML SUBCUT SCH ×3 (07:12→23:32)
[2017-06-13] MEDS: CYCLOBENZAPRINE 10 MG TABLET PO SCH ×2 (10:07→21:00)
[2017-06-13] MEDS: Potassium Chloride Tab 10 MEQ TAB PO SCH (10:07)
[2017-06-13] MEDS: Montelukast Tab 10 MG TAB PO SCH (10:07)
[2017-06-13] MEDS: LISINOPRIL 10 MG TABLET PO SCH (10:08)
--- NOTE | 2017-06-13 11:37 | PT.PROG ---
Progress Note Progress Note: S. Patient stated that she is feeling better this morning, she reports her shoulder is a little sore. O. Patient was transferred to the edge of bed where she performed long arc quads , ankle pumps, marches, resisted knee flexion all x 10 on the right leg. Upper extremity exercises on the right in all planes with red therap band all x 10. Patient performed one sit to stand then was transferred back to bed where she was left with alarm and call light. A. Patient tolerated exercise fair, she was able to tolerate 15 minutes of sitting up. She required max assist x2 to move her to the edge of bed. She was very fearful of performing sit to stand transfer without her brace which would not fit with catheter. She would continue to benefit from skilled therapy at this time to increase strength on her right side. Patient will be fitted with platform walker 06/14. P. Continue POC.
--- NOTE | 2017-06-13 12:24 | PDOC(PROG) ---
Date and Time of Service: 06/13/2017, 1220 Interval History: no chest pain, no SOB. had temperature elevation/fevers last night, but no chills. no nausea or vomiting. left shoulder painful. left leg pain well controlled. RN reported some possible drainage around upper incision, but no pus could be expressed, no erythema, and no redness, possibly just xeroform gauze jelly crusted on dry surrounding gauze. patient still not filling great on transfers as of yet. thinks a gait belt and walker adjustments would help. leary about catheter coming out. no cough. Objective : Data - Labs CBC and BMP: 06/12/17 08:35 06/12/17 08:35 Objective : Exam - General General Appearance: No Acute Distress, Cooperative Additional General Exam Details: Vital Signs (24 hrs) Temp Pulse Resp BP Pulse Ox 06/13/17 11:24 98 F 111 H 17 110/43 95 06/13/17 06:58 97.5 F 85 17 107/45 93 06/13/17 04:13 98.8 F 99 16 116/60 95 06/13/17 00:03 99.6 F 104 H 20 122/70 92 06/12/17 21:07 100.7 F H 105 H 24 122/74 91 06/12/17 20:09 100.5 F H 104 H 24 123/52 94 06/12/17 19:46 100.5 F H 06/12/17 16:50 98.9 F 107 H 18 128/64 93 06/12/17 12:34 99 F 103 H 20 130/74 93 - Eye Eye Exam: No Scleral Icterus - ENT ENT Exam: Mucous Membranes Moist - Respiratory Respiratory Exam: Clear to Auscultation - Bilaterally, Breathing Non Labored - Cardiovascular Cardiovascular Exam: RRR, No Murmur, No Clicks, No Gallops, No Rubs, No JVD - GI/Abdominal GI/Abdominal Exam: Normal Bowel Sounds, Non Tender, Non Distended, Soft - Extremities Extremities Exam: No Clubbing Present, No Edema Present, No Cyanosis Present Additional Extremities Exam Details: left leg with brace in place. upper lateral incision is clean, dry, intact, no pus could be expressed. some dried jelly from xeroform gauze dressing that was there earlier. - Neurological Neurological Exam: Alert, Oriented x 3, No Facial Droop, Speech Intact / Clear Assessment and Plan - Patient Problems (1) UTI (urinary tract infection) Current Visit: Yes Status: Acute Code(s): N39.0 - Urinary tract infection, site not specified Qualifiers: Urinary tract infection type: acute cystitis Hematuria presence: without hematuria Qualified Code(s): N30.00 - Acute cystitis without hematuria (2) Fracture of femur Current Visit: No Status: Acute Code(s): S72.90XA - Unspecified fracture of unspecified femur, initial encounter for closed fracture (3) Scapular fracture Current Visit: Yes Status: Acute Code(s): S42.109A - Fracture of unspecified part of scapula, unspecified shoulder, initial encounter for closed fracture Qualifiers: Encounter type: initial encounter Fracture type: closed Laterality: left (4) Osteogenesis imperfecta Current Visit: Yes Status: Acute Code(s): Q78.0 - Osteogenesis imperfecta (5) Anemia Current Visit: Yes Status: Acute Code(s): D64.9 - Anemia, unspecified Qualifiers: Anemia type: unspecified type Qualified Code(s): D64.9 - Anemia, unspecified - Assessment / Plan Additional Assessment/Plan Details: UTI due to klebsiella, present on admission--this was likely the cause of the fever start IS check labs in AM PT and OT catheter out tomorrow will stick with rocephin for now until fever free for 48 hours. blood cultures pending. swing here most likely.
--- NOTE | 2017-06-13 13:50 | ORTHO.PROG ---
Last Taken Vital Signs: Vital Signs - Last Taken Temperature 98 F 06/13/17 11:24 Pulse Rate 111 H 06/13/17 11:24 Respiratory Rate 17 06/13/17 11:24 Blood Pressure 110/43 06/13/17 11:24 Pulse Ox 95 06/13/17 11:24 Subjective: Patient notes to be doing well her scapula pain on the left is decreasing. Her left leg pain is slowly improving but she is in a knee immobilizer. Objective: Examination of the upper portion of the patient's incision show that the incision has derick in place is clean and dry no evidence of infection she had no blister posterior to this which is not infected either. Motor and sensory exam is intact. Patient was some tenderness over the scapula and pain with movement of the left arm in the posterior scapular region. Vital Signs (24 hrs) Temp Pulse Resp BP Pulse Ox 06/13/17 11:24 98 F 111 H 17 110/43 95 06/13/17 06:58 97.5 F 85 17 107/45 93 06/13/17 04:13 98.8 F 99 16 116/60 95 06/13/17 00:03 99.6 F 104 H 20 122/70 92 06/12/17 21:07 100.7 F H 105 H 24 122/74 91 06/12/17 20:09 100.5 F H 104 H 24 123/52 94 06/12/17 19:46 100.5 F H 06/12/17 16:50 98.9 F 107 H 18 128/64 93 Assessment: Patient with osteogenesis imperfecta with a very significant left distal femur fracture treated by open reduction internal fixation in [place]. Left scapula body fracture minimally displaced Plan: Patient will continue with physical therapy and occupational therapy. Pain control seems to be under control with oral medications. Mobilization using the left arm as tolerated. I thought her incision and everything looked good and the tentative plan from her surgeon was to have these removed on . Think this is reasonable at this point in time to have these removed on Wednesday or .
[2017-06-13] MEDS: DILTIAZEM CD 180 MG CAP PO SCH (21:00)
[2017-06-13] MEDS: LEVONORGESTREL ETHIN ESTRADIOL PO SCH (21:00)
[2017-06-13] MEDS: Simvastatin Tab 10 MG TAB PO SCH (21:01)
[2017-06-13] MEDS: cefTRIAXone Inj 2 GM in Sodium Chloride 0.9% 100 ML IV SCH (21:01)
[2017-06-14] MEDS: ACETAMINOPHEN 325 MG TABLET PO PRN ×3 (03:20→23:28)
[2017-06-14] MEDS: oxyCODONE IR Tab 5 MG TAB PO PRN ×3 (04:23→19:22)
[2017-06-14 05:10] LABS: BASOPHILS # (AUTO) 0.03 10*3/UL; BASOPHILS % (AUTO) 0.2 % (0-1); EOSINOPHILS # (AUTO) 0.14 10*3/UL; EOSINOPHILS % (AUTO) 1.1 % (0-8); Hematocrit [HCT] 30.3 % (37.0-47.0); Hemoglobin [HGB] 9.4 g/dL (12.0-16.0); MEAN CORPUSCULAR HEMOGLOBIN 28.6 PG (27-31); MEAN CORPUSCULAR VOLUME 92.1 FL (81-99); MEAN PLATELET VOLUME 8.2 FL (7.4-12.2); MONOCYTES # (AUTO) 0.88 10*3/UL (0.3-0.8); MONOCYTES % (AUTO) 6.9 % (5-15); NEUTROPHILS # (AUTO) 9.46 10*3/UL; NEUTROPHILS % (AUTO) 74.1 % (50-80); RED BLOOD COUNT 3.29 10^6/uL (4.20-5.40)
[2017-06-14 05:18] LABS: BLOOD UREA NITROGEN 7 mg/dL (7-22)
[2017-06-14 05:20] LABS: PLATELET MORPHOLOGY COMMENT NORMAL MORPHOLOGY (NORM); RBC MORPHOLOGY COMMENT NORMAL MORPHOLOGY (NORM); WBC MORPHOLOGY COMMENT NORMAL MORPHOLOGY (NORM)
[2017-06-14] MEDS: HEPARIN 5000 UNIT/1 ML SUBCUT SCH ×3 (07:23→23:29)
[2017-06-14] MEDS: Montelukast Tab 10 MG TAB PO SCH (08:42)
[2017-06-14] MEDS: LISINOPRIL 10 MG TABLET PO SCH (08:42)
[2017-06-14] MEDS: CYCLOBENZAPRINE 10 MG TABLET PO SCH ×2 (08:42→21:03)
[2017-06-14] MEDS: Potassium Chloride Tab 10 MEQ TAB PO SCH (08:43)
--- NOTE | 2017-06-14 09:41 | OT.PROG ---
Progress Note Progress Note: Occupational Therapy: 15 min S: pt stated she was doing okay today and wanted to try to sit on the bedside commode. O: pt completed functional transfer from EOB to commode with MOD A for positioning and use of walker for transfer. pt completed toileting hygiene tasks Independently with set up. pt completed functional transfer from commode to supine with MAX A for transfer and MIN A for positioning in bed. A: pt tolerated session well but wants to wait to sit in chair until this afternoon. P: continue POC
--- NOTE | 2017-06-14 12:31 | OTI REPORT ---
Thank you for the referral of Pita Starr. She was seen on 06/11/17 for an occupational therapy inpatient evaluation secondary to a left femur fracture. SUBJECTIVE: The patient is a 56-year-old female who has osteogenesis imperfecta. She has had some fractures in the past on her right leg. She recently had an ORIF of her left distal femur. Her was transferring her and the patient felt a bad pain in her shoulder. When coming to the hospital, she had a CAT scan done and there was a fracture of the spine of her scapula on the left side. Prior to admission the patient's functional abilities fluctuated. The patient states that secondary to her disease process, sometimes she uses a cane to walk, sometimes a walker, and sometimes she wheels herself in a manual wheelchair. PAST MEDICAL HISTORY: Past medical history can be found in the patient's medical record. OBJECTIVE FINDINGS: General observations: The patient was supine in bed upon the therapist's arrival. The patient is of very small stature. Pain: The patient rated her pain in her left lower extremity as an 8/10 on the verbal analog scale (0=no pain, 10=worst pain). Range of motion: The right upper extremity demonstrated range of motion from 0 to 90 degrees; it hurt too much to raise the arm higher than that. On the left side we were not able to assess her shoulder function secondary to her scapula fracture. The patient was issued an arm sling per MD orders to keep the arm immobile. The patient does have elbow and wrist range of motion that is within functional limits. Strength: Strength in the right upper extremity was 3+/5 for elbow flexion/ extension and shoulder strength was 3/5. Bed mobility: OT and PT co-treated in getting patient to edge of bed, which took max assist x2 using a sheet transfer. While sitting edge of bed we worked on some light active range of motion of her upper extremities. The patient then transferred back into bed with max assist x2. ASSESSMENT: The patient is to be in the arm sling for at least 6 weeks while her scapula is healing. At this point in time the patient requires too much assistance for transfers for the to take the patient home by himself. It is recommended that we keep the patient here on an in patient stay and she may need to go swingbed at some point in time to work on her functional transfers. The patient is very fragile in regards to her bone density and can acquire fractures easily. Problem List: Increased pain Decreased ability to complete functional transfers Patient is non weight-bearing on her left lower extremity Patient is non weight-bearing on her left upper extremity Short-Term Goals: To be met by discharge from inpatient: Patient will be able to dress self with min assist. Patient will be able to complete functional stand pivot transfer with mod assist. Patient will be able to assist in hygiene activities 50% of the time. Patient will improve right upper extremity strength to 4/5 to assist with transfers. Long-Term Goals: To be met following discharge from inpatient: Patient will be able to return home, being able to complete stand pivot transfers to assist with safety. TREATMENT PLAN: Patient will be seen B.I.D during the week and one time per day over the weekend as an inpatient to address the above goals and objectives. INITIAL TREATMENT: Treatment today consisted of the initial evaluation activities only. DEBRA
--- NOTE | 2017-06-14 12:41 | OT PM DAY ---
Diagnosis : Left Femur Fracture PM - Occupational Therapy S: The patient reports that her left shoulder and back are hurting worse than her leg today. She would like to be repositioned. O: The patient was seen in her room. She was co-treated with PT for bed mobility which she completed with max assist. Once sitting edge of bed, the patient completed therapeutic exercises with red theraband in all ranges with right upper extremity including biceps flexion, shoulder extension, rows, and internal rotation, x20 repetitions each to increase her strength to assist with postural transitions and sit to stands and use of walker when the time is right. A: The patient will continue to benefit from therapy to maintain her activity tolerance and to keep her moving. We will continue to monitor her pain in her leg and her shoulder. P: Continue seeing patient BID during the week and one time per day over the weekend for upper extremity strengthening, ADLs, and overall functional mobility. MTDD
--- NOTE | 2017-06-14 13:22 | PT.PROG ---
Progress Note Progress Note: S. Patient stated that she would like to get up. O. Patient transferred to the edge of the bed then stood x 2 minutes to fit a platform walker. Patient performed stand pivot transfer to the commode then dependent transfer back to bed. Patient was left in bed with alarm and call light. A. Patient tolerated therapy fair this morning, she continues to struggle with pain and weakness. Patient would continue to benefit from skilled therapy to increase strength and mobility. P. Continue POC.
[2017-06-14] MEDS ORDERED: CHOLECALCIFEROL 1000 IU TABLET PO ONE (16:33)
--- NOTE | 2017-06-14 16:33 | PDOC(PROG) ---
Date and Time of Service: 06/14/2017, 1630 Interval History: No completes of chest pain, or shortness of breath. No nausea or vomiting. She states transfers are still very difficult. Her platform walkers not quite where it needs to be just yet. Her slide board transfer may be the thought to move to a bedside commode. But she still max assist according to therapy notes as well. She states her pain is fairly well-controlled and her scapula and in her leg but is steadily worsen her scapula when moving. No fevers overnight. The temperature maximum is around 99.5. Objective : Data - Labs CBC and BMP: 06/14/17 04:37 06/14/17 04:37 Objective : Exam - General General Appearance: No Acute Distress, Cooperative Additional General Exam Details: Vital Signs (24 hrs) Temp Pulse Resp BP Pulse Ox 06/14/17 11:03 97.6 F 114 H 18 118/66 96 06/14/17 07:06 97.8 F 102 H 17 105/52 93 06/14/17 07:00 108 H 06/14/17 03:54 98.7 F 112 H 24 128/64 93 06/14/17 03:20 98.7 F 06/14/17 00:39 99.3 F 97 20 128/70 96 06/13/17 20:16 99.5 F 117 H 20 123/70 93 06/13/17 19:00 112 H - Eye Eye Exam: No Scleral Icterus - ENT ENT Exam: Mucous Membranes Moist - Respiratory Respiratory Exam: Clear to Auscultation - Bilaterally, Breathing Non Labored - Cardiovascular Cardiovascular Exam: RRR, No Murmur, No Clicks, No Gallops, No Rubs, No JVD - GI/Abdominal GI/Abdominal Exam: Normal Bowel Sounds, Non Tender, Non Distended, Soft - Extremities Extremities Exam: No Clubbing Present, No Edema Present, No Cyanosis Present Additional Extremities Exam Details: Knee immobilizer is on left lower extremity. - Neurological Neurological Exam: Alert, Oriented x 3, No Facial Droop, Speech Intact / Clear Assessment and Plan - Patient Problems (1) UTI (urinary tract infection) Current Visit: Yes Status: Acute Code(s): N39.0 - Urinary tract infection, site not specified Qualifiers: Urinary tract infection type: acute cystitis Hematuria presence: without hematuria Qualified Code(s): N30.00 - Acute cystitis without hematuria (2) Fracture of femur Current Visit: No Status: Acute Code(s): S72.90XA - Unspecified fracture of unspecified femur, initial encounter for closed fracture (3) Scapular fracture Current Visit: Yes Status: Acute Code(s): S42.109A - Fracture of unspecified part of scapula, unspecified shoulder, initial encounter for closed fracture Qualifiers: Encounter type: initial encounter Fracture type: closed Laterality: left (4) Osteogenesis imperfecta Current Visit: Yes Status: Acute Code(s): Q78.0 - Osteogenesis imperfecta (5) Anemia Current Visit: Yes Status: Acute Code(s): D64.9 - Anemia, unspecified Qualifiers: Anemia type: unspecified type Qualified Code(s): D64.9 - Anemia, unspecified - Assessment / Plan Additional Assessment/Plan Details: At this point, continue Rocephin for Klebsiella urinary tract infection, present on admission. Probably will need the catheter and one more day until we know that the transfers are working much better to use the outside commode. I don't want urine on the wounds. May need to consider continuing Rocephin IV for the next 48 hours. I like to see that the fever curve is improved for at least 48 hours prior to switching back to by mouth He we are still in the process of evaluating for swing bed and I really think this patient needs it Vitamin D is low so I will go ahead and start vitamin D. Patient may benefit from an osteogenesis imperfecta clinic post hospital stay.
--- NOTE | 2017-06-14 17:15 | PT.PROG ---
Progress Note Progress Note: S. Patient stated that she would like to sit up for a bit. O. patient transferred to the edge of the bed then performed seated exercises in the form of; long arc quads, resisted knee flexion, marches all x 15 on the right. Patient transferred back to supine where she performed heel slides, quad sets and glute sets all x 15. Patient was left with alarm and call light. A. Patient tolerated sitting and seated exercises well, she wants to attempt slide board transfers. Patient would continue to benefit from skilled therapy to increase strength and mobility. P. Continue POC.
--- NOTE | 2017-06-14 17:24 | OT.PROG ---
Progress Note Progress Note: Occupational Therapy S: Pt. reports that she is doing okay this afternoon and would like to sit up. O: Pt. performed bed mobility tasks to include moving from supine to sit at EOB and back to supine with max A. While seated EOB, pt. completed the following upper extremity strengthening with R UE only with RTB: shoulder flexion, biceps curls, triceps extension, shoulder extension, internal rotation, and external rotation X 10 each. A: Pt. tolerated sitting upright and UE strengthening fair. Pt. continues to benefit from skilled care to increase independence, safety, and mobility. P: Continue POC. SALMA Broderick/Lorena
[2017-06-14] MEDS: cefTRIAXone Inj 2 GM in Sodium Chloride 0.9% 100 ML IV SCH (21:03)
[2017-06-14] MEDS: DILTIAZEM CD 180 MG CAP PO SCH (21:03)
[2017-06-14] MEDS: Simvastatin Tab 10 MG TAB PO SCH (21:03)
[2017-06-14] MEDS: LEVONORGESTREL ETHIN ESTRADIOL PO SCH (21:08)
[2017-06-15] MEDS: oxyCODONE IR Tab 5 MG TAB PO PRN ×4 (04:53→20:58)
[2017-06-15 05:32] LABS: BASOPHILS # (AUTO) 0.03 10*3/UL; BASOPHILS % (AUTO) 0.3 % (0-1); EOSINOPHILS # (AUTO) 0.14 10*3/UL; EOSINOPHILS % (AUTO) 1.2 % (0-8); Hematocrit [HCT] 29.7 % (37.0-47.0); Hemoglobin [HGB] 9.3 g/dL (12.0-16.0); LYMPHOCYTES # (AUTO) 2.48 10*3/uL; MEAN CORPUSCULAR HEMOGLOBIN 29.2 PG (27-31); MEAN CORPUSCULAR HGB CONC 31.3 g/dL (33-37); MEAN CORPUSCULAR VOLUME 93.4 FL (81-99); MEAN PLATELET VOLUME 8.4 FL (7.4-12.2); MONOCYTES # (AUTO) 0.97 10*3/UL (0.3-0.8); MONOCYTES % (AUTO) 8.3 % (5-15); NEUTROPHILS % (AUTO) 67.7 % (50-80); RED BLOOD COUNT 3.18 10^6/uL (4.20-5.40)
[2017-06-15 05:35] LABS: PLATELET MORPHOLOGY COMMENT NORMAL MORPHOLOGY (NORM); RBC MORPHOLOGY COMMENT NORMAL MORPHOLOGY (NORM); WBC MORPHOLOGY COMMENT NORMAL MORPHOLOGY (NORM)
[2017-06-15] MEDS: HEPARIN 5000 UNIT/1 ML SUBCUT SCH ×2 (07:45→15:05)
[2017-06-15] MEDS: ACETAMINOPHEN 325 MG TABLET PO PRN ×2 (07:48→21:47)
[2017-06-15] MEDS: LISINOPRIL 10 MG TABLET PO SCH (08:57)
[2017-06-15] MEDS: CHOLECALCIFEROL 1000 IU TABLET PO SCH (09:49)
[2017-06-15] MEDS: CYCLOBENZAPRINE 10 MG TABLET PO SCH ×2 (09:49→20:58)
[2017-06-15] MEDS: Potassium Chloride Tab 10 MEQ TAB PO SCH (09:49)
[2017-06-15] MEDS: Montelukast Tab 10 MG TAB PO SCH (09:49)
--- NOTE | 2017-06-15 10:32 | OT.PROG ---
Progress Note Progress Note: S: Pt. stated she was ready to try using slide board for commode to chair transfer. Pt also stated 's concern with PLOF. O: Pt participated in 20 min OT session to address independence with commode transfers and R UE strengthening exercises. Pt. independent with toilet hygiene after setup. Pt. completed commode to chair transfer with the use of slide board with mod A for holding L LE up and min A balance. Pt. completed 10 reps of R UE strengthening exercises with yellow Theraband to increase UE strength and endurance. Exercises included: shld extension, adduction, IROT and EROT and elbow flexion and extension. OT started discussion about possible powered mobility and sent face sheet and medical info to [facility] with pt's permission. A: Pt's decreased functional mobility and UE strength and endurance impact her ability to successfully participate in daily occupations. Pt demo's progress by transferring from bedside commode to chair with use of slide board. Pt shows good rehab potential by showing determination to increase functional mobility and maintain optimal independence. Pt would benefit from cont OT services to increase independence with functional mobility and bilateral UE strength and endurance to increase independence with ADLs. P: Pt will cont OT services twice daily to increase UE strength and endurance and functional mobility to increase independence with ADLs.
--- NOTE | 2017-06-15 11:42 | PT.PROG ---
Progress Note Progress Note: S. Patient stated that she would like to sit up. O. Patient was transferred to the commode then transferred via slide board to the chair. Patient was left with call light. A. Patient tolerated transfers well, she continues to struggle with weakness and required max assist with transfer to commode, however was able to perform slide board transfer with mod assist. Patient would continue to benefit from skilled therapy to increase strength, mobility and endurance. P. Continue POC.
--- NOTE | 2017-06-15 15:54 | OT PM DAY ---
Diagnosis : L FEMUR FX PM - Occupational Therapy S: The patient states that her left arm scapular/shoulder area is not feeling too bad. She does not passively move it at times. She does report that she can move her biceps as long as she keeps her elbow down. O: Patient was seen in her room. After assisting PT with transfer she completed upper extremity exercises with a red theraband with the right upper extremity in all planes, all times 15 to increase her upper extremity strength. She also completed some active shoulder shrugs, active biceps function, and supination/pronation of her left affected side of her upper extremity. She also completed heel slides with her right non affected side, four way ankles with right non affected side, and ankle pumps on her affected side. A: Patient may continue to benefit from therapy to increase functional transfers. Once the catheter is removed she may be able to stand much better as she will be able to don her brace on her right non affected side. P: Continue seeing patient BID during the week and one time per day over the weekend for upper extremity strengthening, ADLs, and overall functional mobility. MTDD
--- NOTE | 2017-06-15 16:01 | ORTHO.PROG ---
Last Taken Vital Signs: Vital Signs - Last Taken Temperature 97.8 F 06/15/17 15:30 Pulse Rate 115 H 06/15/17 15:30 Respiratory Rate 16 06/15/17 15:30 Blood Pressure 118/66 06/15/17 15:30 Pulse Ox 93 06/15/17 15:30 Subjective: Patient doing better today working with therapy able to move the shoulder somewhat better without marked pain or discomfort. Objective: Examination shows that the shoulder motion is somewhat limited secondary pain in the scapular region but is actually good external rotation is 50 her forward flexion is about 60 which was almost nonexistent the other day. Her motor and sensory exam is nonfocal. The left leg has good motion of the foot and ankle incision clean and dry derick are in place. Laboratory Results 06/15/17 Range/Units 04:23 WBC 11.66 H (4.8-10.8) 10^3/uL RBC 3.18 L (4.20-5.40) 10^6/uL Hgb 9.3 L (12.0-16.0) g/dL Hct 29.7 L (37.0-47.0) % MCV 93.4 (81-99) FL MCH 29.2 (27-31) PG MCHC 31.3 L (33-37) g/dL RDW Std Deviation 48.0 (39-50) fL RDW Coeff of Shailesh 14.9 H (11.5-14.5) % Plt Count 455 H (140-350) 10*3/uL MPV 8.4 (7.4-12.2) FL Immature Gran % (Auto) 1.2 (0-5) % Neut % (Auto) 67.7 (50-80) % Lymph % (Auto) 21.3 (10-50) % [place] % (Auto) 8.3 (5-15) % Eos % (Auto) 1.2 (0-8) % Baso % (Auto) 0.3 (0-1) % Immature Gran # (Auto) 0.14 10*3/UL Neut # (Auto) 7.90 10*3/UL Lymph # (Auto) 2.48 10*3/uL [place] # (Auto) 0.97 H (0.3-0.8) 10*3/UL Eos # (Auto) 0.14 10*3/UL Baso # (Auto) 0.03 10*3/UL WBC Morphology Comment Normal morphology (NORM) Plt Morphology Comment Normal morphology (NORM) RBC Morph Comment Normal morphology (NORM) Vital Signs (24 hrs) Temp Pulse Resp BP Pulse Ox 06/15/17 15:30 97.8 F 115 H 16 118/66 93 06/15/17 11:54 98.0 F 115 H 16 112/58 95 06/15/17 08:37 98.2 F 103 H 16 112/62 95 06/15/17 04:52 98.6 F 97 16 108/54 94 06/15/17 00:26 99.1 F 112 H 14 108/56 95 06/14/17 20:25 98.5 F 118 H 21 105/41 95 06/14/17 19:00 120 H 06/14/17 16:36 97.2 F 121 H 18 118/60 96 Assessment: Left supracondylar femur fracture with open reduction internal fixation Left scapular body fracture Osteogenesis imperfecta Plan: At the current time patient will continue with physical therapy and occupational therapy. Remove derick tomorrow and Steri-Strip Mobilize left arm as tolerated and use as tolerated. Immediate goal is to have shoulder functioning better and tried to get patient mobilizing with strict nonweightbearing on the left lower extremity and using a walker with a platform for the left to avoid stress on the left scapula. Discussed with patient I will be out of the area for the next 5 days and any questions can be answered by my partner during that time.
--- NOTE | 2017-06-15 16:23 | PT.PROG ---
Progress Note Progress Note: S. Patient stated that she would like to get back to bed, and would like to stop at the restroom beforehand. O. Patient performed slide board transfer to the commode, then another slide board transfer to the bed where she performed supine exercises in the form of; heel slides, quad sets, ankle pumps, glute sets and straight leg raises all x 10 on her right leg. A. Patient tolerated slide board transfer to the right very well, She continues to be non weight bearing on the left side, she is unable to bear weight on the right without her brace. Patient was able to perform exercises on the right leg well. She would continue to benefit from skilled therapy to increase strength, endurance and mobility. P. Continue POC.
--- NOTE | 2017-06-15 16:30 | PDOC(PROG) ---
Date and Time of Service: 06/15/2017, 1625 Interval History: no chest pain, no SOB, no nausea or vomiting. no fevers. a little better in terms of transfers, but not perfect yet. [place] out tomorrow (D/W Dr. Nolasco) Objective : Data - Labs CBC and BMP: 06/15/17 04:23 06/14/17 04:37 Objective : Exam - General General Appearance: No Acute Distress, Cooperative Additional General Exam Details: Vital Signs (24 hrs) Temp Pulse Resp BP Pulse Ox 06/15/17 15:30 97.8 F 115 H 16 118/66 93 06/15/17 11:54 98.0 F 115 H 16 112/58 95 06/15/17 08:37 98.2 F 103 H 16 112/62 95 06/15/17 04:52 98.6 F 97 16 108/54 94 06/15/17 00:26 99.1 F 112 H 14 108/56 95 06/14/17 20:25 98.5 F 118 H 21 105/41 95 06/14/17 19:00 120 H 06/14/17 16:36 97.2 F 121 H 18 118/60 96 - Head Head Exam: Normal Inspection, Normocephalic, Atraumatic - Eye Eye Exam: No Scleral Icterus - ENT ENT Exam: Mucous Membranes Moist - Respiratory Respiratory Exam: Clear to Auscultation - Bilaterally, Breathing Non Labored - Cardiovascular Cardiovascular Exam: RRR, No Murmur, No Clicks, No Gallops, No Rubs - GI/Abdominal GI/Abdominal Exam: Normal Bowel Sounds, Non Tender, Non Distended, Soft - Extremities Extremities Exam: No Clubbing Present, No Edema Present, No Cyanosis Present - Neurological Neurological Exam: Alert, Oriented x 3, No Facial Droop, Speech Intact / Clear Assessment and Plan - Patient Problems (1) UTI (urinary tract infection) Current Visit: Yes Status: Acute Code(s): N39.0 - Urinary tract infection, site not specified Qualifiers: Urinary tract infection type: acute cystitis Hematuria presence: without hematuria Qualified Code(s): N30.00 - Acute cystitis without hematuria (2) Fracture of femur Current Visit: Yes Status: Acute Code(s): S72.90XA - Unspecified fracture of unspecified femur, initial encounter for closed fracture (3) Scapular fracture Current Visit: Yes Status: Acute Code(s): S42.109A - Fracture of unspecified part of scapula, unspecified shoulder, initial encounter for closed fracture Qualifiers: Encounter type: initial encounter Fracture type: closed Laterality: left (4) Osteogenesis imperfecta Current Visit: Yes Status: Acute Code(s): Q78.0 - Osteogenesis imperfecta (5) Anemia Current Visit: Yes Status: Acute Code(s): D64.9 - Anemia, unspecified Qualifiers: Anemia type: unspecified type Qualified Code(s): D64.9 - Anemia, unspecified - Assessment / Plan Additional Assessment/Plan Details: Go ahead and discontinue catheter today. Rocephin today, then switch back to Keflex, today is day 4 of 10 for antibiotic therapy for urinary tract infection, present on admission. Is having some slight improvements and movement and still needs work with slide board and transfer therapies prior to discharge not quite safe to go home yet she would be at increased risk of fall. We are finding out however, that her insurance has an extensive protocol for swing bed status is likely not accessible to do, so we may have to look at acute rehabilitation options and will send a referral to [facility]. In the meantime , I have no intention of discharging the patient to tell everyone feels safe, including the patient, therapy departments, regarding her ability to move and conduct activities of daily living. If we need to do this as a patient, then we will do an inpatient. [place] out tomorrow and Steri-Stripp. Vitamin D replacement We will try to get a hold of a metabolic bone specialist down at [facility] if possible, to determine anything else that we need to be doing in the setting of this fracture
[2017-06-15] MEDS: DILTIAZEM CD 180 MG CAP PO SCH (20:58)
[2017-06-15] MEDS: LEVONORGESTREL ETHIN ESTRADIOL PO SCH (20:59)
[2017-06-15] MEDS: Simvastatin Tab 10 MG TAB PO SCH (20:59)
[2017-06-15] MEDS: cefTRIAXone Inj 2 GM in Sodium Chloride 0.9% 100 ML IV SCH (20:59)
[2017-06-15] MEDS: CEPHALEXIN 500 MG CAPSULE PO SCH (20:59)
[2017-06-15] MEDS: NORMAL SALINE 10 ML SYRINGE FLUSH IVP PRN (21:00)
[2017-06-16] MEDS: HEPARIN 5000 UNIT/1 ML SUBCUT SCH ×3 (00:07→15:55)
[2017-06-16] MEDS: oxyCODONE IR Tab 5 MG TAB PO PRN ×2 (05:31→12:09)
[2017-06-16] MEDS: ACETAMINOPHEN 325 MG TABLET PO PRN ×2 (07:58→15:55)
[2017-06-16] MEDS: CHOLECALCIFEROL 1000 IU TABLET PO SCH (08:00)
[2017-06-16] MEDS: Montelukast Tab 10 MG TAB PO SCH (08:01)
[2017-06-16] MEDS: CEPHALEXIN 500 MG CAPSULE PO SCH (08:01)
[2017-06-16] MEDS: Potassium Chloride Tab 10 MEQ TAB PO SCH (08:01)
[2017-06-16] MEDS: CYCLOBENZAPRINE 10 MG TABLET PO SCH (08:01)
[2017-06-16] MEDS: LISINOPRIL 10 MG TABLET PO SCH (09:53)
--- NOTE | 2017-06-16 10:14 | OT.PROG ---
Progress Note Progress Note: Occupational Therapy: 20 min S: pt stated that she was doing okay and was happy that she had gotten a bed bath this morning. O: pt completed bed mobility with MIN A for L LE positioning. pt completed donning of R LE brace Independently and shoe with MIN A. pt completed functional transfer from EOB to bedside commode with MOD A for stability and positioning for transfer. pt completed all toileting hygiene tasks Independently with set up. pt completed ADL task of LE dressing. pt was MOD A for donning underwear. A: pt tolerated session well and was an active participant in therapy today. P: continue POC
--- NOTE | 2017-06-16 11:34 | PT.PROG ---
Progress Note Progress Note: S. Patient stated that she is having some pain however she is willing to transfer to the wheelchair. O. Patient transferred to the wheelchair, then was wheeled outside where she performed exercises on her right leg in the form of; long arc quads, marches, and ankle pumps all x 10. Patient was returned to her room where she transferred to the chair and was left with alarm and call light. A. Patient tolerated transfers well, she was able to perform stand pivot transfer with brace on her right leg. Patient transfers fair to the right with mod assist x2. Patient would continue to benefit from skilled therapy at this time. P. Continue POC.
[2017-06-16 12:03] VITALS: RESP 16; O2SAT 94
--- NOTE | 2017-06-16 15:44 | DI ---
CT ANGIOGRAM OF THE CHEST, 06/16/2017 11:10 AM : Clinical History: Fever. Postoperative status for a femur fracture. Previous Exam: None at this facility. Scans are performed from the base of the neck to the lower lung bases with IV contrast. 50 mL of Isov ue 300 was injected IV. Proprietary automated bolus tracking software was used to verify the timing o f the injection. On this exam, the patient took a very shallow inspiration. The base of the neck and thoracic inlet ar e normal. There are no abnormal axillary, supraclavicular, mediastinal, or hilar nodes. There may be a very small pericardial effusion but there are some artifacts present. The heart itself is normal. T he pulmonary arteries are normal. There is no pulmonary arterial hypertension. There is no evidence o f pulmonary embolism or pulmonary infarction. The lungs are clear and there are no pulmonary nodules or masses. Both adrenal glands and the spleen and in the limited views of the pancreas and liver are normal. There are 2, 8 mm spherical tandem nodules located in the medial half of the left breast and a smaller nodule located posteriorly toward the lateral half of the right breast. This patient had a mammogram from 09/24/2015, and these nodules were present at that time and have the same appearance. READIN. Normal CTA of the chest. There are no pulmonary emboli or pulmonary infarcts. 2. There is no acute infiltrate or effusion. 3. There may be a very small pericardial effusion, but there are artifacts present near the heart. 4. 8mm nodules in the medial half of the left breast and a smaller nodule with calcification located posteriorly in the right breast. Review of the mammogram from 2015 shows that these were present and probably have not changed. Followup with mammograms can be performed on an outpatient basis.
[2017-06-16 17:14] VITALS: BP 120/82; TEMP 97.6
--- NOTE | 2017-06-16 17:41 | DCSUMMARY ---
Hospitalization Summary Admit Date: 06/10/2017 Discharge Date: 06/16/17 Primary Diagnosis:: Urinary tract infection, present on admission Hospital Course: This very pleasant 56-year-old female that was admitted here with urinary tract infection, present on admission, post recent femoral fracture repair. She has osteogenesis imperfecta that made things very complicated. She also had a left scapular fracture that was really limiting her motion in her left arm. She was admitted, placed on IV antibiotics which somehow got discontinued but were resumed, and the patient had improvements in her urinary symptoms. She had a catheter through some of the portion of the hospital stay but it was removed 2 days prior to discharge. The patient had some low-grade temperatures that I felt were related to the urinary tract infection. A CT scan was done to make sure that there is no evidence of pulmonary emboli given her recent femur fracture, and this was negative for pulmonary emboli. We started an incentive spirometer in case of atelectasis, particularly with what is likely restrictive lung disease given the osteogenesis imperfecta. In addition, we did blood cultures which have remained negative through the hospital stay. The patient has been working very hard with physical therapy on slide board transfers that she is nonweightbearing on her left lower extremity. Given her osteogenesis imperfecta, we've had to be very careful with transfers so as to not cause any other fractures with this patient, and we placed her on vitamin D as well. Her vitamin D level was less than 30. She has done very well with physical therapy and occupational therapy and they are also working on getting her a mechanical chair for him approved mobility outside the hospital as well. The patient would benefit from continued physical therapy and we had some issues in terms of trying to arrange a swing bed placement. I will note that we will go ahead and transfer the patient to the swing bed as it is the right thing to do. The short-term goals are to return the patient home, the patient's , as her proxy, has been very participatory and management prior to the admission to the swing bed. He will be involved during the patient's admission to the swing bed as well. The patient will need physical therapy and occupational therapy on the swing bed due to her fractures. Particularly with some limitations in her left upper extremity movement due to pain from her scapular fracture and nonweightbearing status on her left lower extremity. She really needs to work on transfers, slide board transfers, in particular as it relates to her activities of daily function. She is a normal neurologic and cognitive status, her functional mobility is limited due to her osteogenesis imperfecta, her fractures of her femur, and her scapula. Refer to the physical therapy and occupational therapy notes for more information on functional status of her muscular skeletal system. She has normal heart rate, and normal cardiac status. She does not have any evidence of skin breakdown. Her wounds are healing well. Her kidney function is normal. She has no evidence of severe depression or anxiety or other psychiatric issues. Her nutritional status and her ability to swallow and digestive foods are normal. She does have educational needs in terms of her ability to use a new motorized wheelchair, slide board transfers, activities transfers, and continued work with those regarding safety around the house. She may benefit as well from a home evaluation which I would think needs to be done prior to discharge from the [facility] facility/swing bed side of things. In terms of other medical issues during the hospital stay, I do think that we can stop her lisinopril at this point for her blood pressure as her blood pressures been normotensive. It is been held several days due to her low normal blood pressures. Given the patient states that her pain seems controlled on oxycodone and her femur and in her scapula although the scapula seems to give her the most pain. Pain can be limiting in terms of her activities. She has no chest pain, no shortness breath, no nausea or vomiting. I tried to call Dr. Fabián Rosales with [facility] at , but the phone says that it's unknown longer connected phone. So we may have to confirm that number during the swing bed stay to find out if there is anything else they would like us to do for this patient during her rehabilitation due to the osteogenesis imperfecta. Assessment and Plan: 1. As per discharge assessments noted 2. Disposition: Patient is discharged to swing bed. 3. Condition on discharge, stable and improved. 4. Diet: regular diet 5. Activities: PT and OT will continue to work with the patient. 6. Follow-Up: 1. The hospital service will continue to manage medical issues. 2. Orthopedics will continue to follow the fractures. Demetri will be removed tonight with Steri-Strips. I spoke with Dr. Nolasco regarding this. He was fine with that. 7. Medications at the Time of Discharge: Home Medications 3 Medication Instructions Recorded Confirmed Type Albuterol Sulfate [Proair Hfa] 2 puff INH QID #1 inhaler 08/22/15 06/16/17 History Cyclobenzaprine HCl 10 mg ORAL BID #30 tab 04/01/16 06/16/17 Rx Levonorgestrel-Ethin Estradiol 1 tab PO DAILY #3 packet 04/22/16 06/16/17 Rx [Lutera-28 Tablet] Montelukast Sodium [Singulair] 10 mg ORAL QD #90 tab 06/30/16 06/16/17 Rx diltiazem CD 240 mg 180 mg PO QD #90 cap 12/30/16 06/16/17 History capsule,extended release 24 hr potassium chloride ER 10 mEq 10 meq PO QDAY #90 cap 01/07/17 06/16/17 Rx capsule,extended release simvastatin 10 mg tablet 10 mg PO QD #90 tab 03/03/17 06/16/17 Rx lisinopril 10 mg tablet 10 mg PO QDAY 04/01/17 06/16/17 History Oxycodone HCl 5 mg PO PRN PRN 06/10/17 06/16/17 History She will remain on subcutaneous heparin for DVT prophylaxis. Again we will stop lisinopril. She is on Keflex for 6 more days for the urinary tract infection. 8. Time, care, counseling and coordination of care for this discharge is greater than 30 minutes. Exam - Vitals Vital Signs: Vital Signs Temperature 97.6 F Temperature Source Temporal Artery Scan Pulse Rate [Apical] 88 Pulse Rate [Pulse Oximeter] 113 Respiratory Rate 16 Blood Pressure [Right Arm] 120/82 Pulse Ox 94 Oxygen Delivery Method Room Air Height 4 ft 7 in Weight 101 lb - General General Appearance: No Acute Distress, Cooperative - Head Head Exam: Normal Inspection, Normocephalic, Atraumatic - Eye Eye Exam: POSITIVE: No Scleral Icterus - ENT ENT Exam: POSITIVE: Mucous Membranes Moist - Respiratory Respiratory Exam: POSITIVE: Clear to Auscultation - Bilaterally, Breathing Non Labored - Cardiovascular Cardiovascular Exam: POSITIVE: No Murmur, No Clicks, No Gallops, No Rubs, Tachycardia, No JVD - GI/Abdominal GI/Abdominal Exam: POSITIVE: Normal Bowel Sounds, Non Tender, Non Distended, Soft - Rectal Rectal Exam: POSITIVE: Deferred - External Exam: POSITIVE: Deferred Exam: POSITIVE: Deferred - Extremities Extremities Exam: POSITIVE: No Clubbing Present, No Edema Present, No Cyanosis Present Additional Extremities Exam Details: left knee is dressed with a knee immobilizer. - Neurological Neurological Exam: POSITIVE: Alert, Oriented x 3, No Facial Droop, Speech Intact / Clear Data Peritnent Studies: 06/10/17 06/14/17 06/15/17 21:32 04:37 04:23 WBC 11.66 H Hgb 9.3 L Hct 29.7 L Plt Count 455 H Sodium 138 Potassium 3.9 Chloride 104 Carbon Dioxide 21 L Anion Gap 13 BUN 7 Creatinine 0.4 L Estimated GFR > 60 BUN/Creatinine Ratio 17.50 Glucose 89 Calculated Osmolality 282.0 Calcium 9.6 Ur Culture Indicated? Culture set 06/10/17 21:32 Urine Culture - Final Urine,Catheterized Klebsiella Pneumo Ssp Pneumon The Klebsiella is sensitive to Ancef. Blood cultures were negative during the hospital stay. CT scan of the chest was negative for pulmonary emboli there was a small effusion, and there was also some calcifications in one of the breast but the patient had a negative mammogram in 2016 and she states that she will follow-up with a mammogram post hospital stay. Patient Problems - Patient Problem List (1) UTI (urinary tract infection) Status: Acute Code(s): N39.0 - Urinary tract infection, site not specified Qualifiers: Urinary tract infection type: acute cystitis Hematuria presence: without hematuria Qualified Code(s): N30.00 - Acute cystitis without hematuria Category: Medical (2) Fracture of femur Status: Acute Code(s): S72.90XA - Unspecified fracture of unspecified femur, initial encounter for closed fracture Category: Medical (3) Scapular fracture Status: Acute Code(s): S42.109A - Fracture of unspecified part of scapula, unspecified shoulder, initial encounter for closed fracture Qualifiers: Encounter type: initial encounter Fracture type: closed Laterality: left Category: Medical (4) Osteogenesis imperfecta Status: Acute Code(s): Q78.0 - Osteogenesis imperfecta Category: Medical (5) Anemia Status: Acute Code(s): D64.9 - Anemia, unspecified Qualifiers: Anemia type: unspecified type Qualified Code(s): D64.9 - Anemia, unspecified Category: Medical (6) Vitamin D deficiency Status: Acute Code(s): E55.9 - Vitamin D deficiency, unspecified Category: Medical
== END 2017-06-16 17:39 | disposition swing bed (61) | DRG 565 ==
LOC: MED/SURG 19:50 → ER 19:50 → OBSVTOIN 23:26 → MED/SURG 23:45
PROVIDERS: ADMIT Internal Medicine; ATTEND Internal Medicine